=== PATIENT | female | born 1960 | race Caucasian/White ===

== ENCOUNTER 2017-02-16 09:19 | Emergency (ER) | payer BC ==
[2017-02-16] MEDS ORDERED: SODIUM CHLORIDE 0.9% 1,000 ML IV STA ×2 (09:51)
--- NOTE | 2017-02-16 10:07 | ED ---
Recheck HPI - General Chief Complaint: Recheck/Abnormal Lab/Rx Stated Complaint: SOB Time Seen by Provider: 02/16/17 09:29 Source: patient, EMS, RN notes reviewed, old records reviewed Mode of arrival: EMS Limitations: no limitations - History of Present Illness Initial Comments: This is a 56-year-old female presents to the emergency department today via EMS chief complaint of viral illness for the past week. She reports that she went to her primary care doctor, and he told one week ago and he did chest x-ray. They told her that she had a viral illness and to go home and rest. Patient reports that she's not getting any better with [id number] medications. She went to the primary care doctor again today, and they repeated a chest x- ray. They question if there is a developing pneumonia as well as some evidence of an enlarged heart and her chest x-ray. They sent her here for further evaluation. She reports that she has a nonproductive cough. She complains of shortness of breath. She reports that she has right sided lung pain. She denies any lower extremity swelling, denies any orthopnea. Patient states that she has had nausea but no vomiting. Denies any specific abdominal pain, or changes in bowel habits or urination. - Related Data Home Medications Medication Instructions Recorded Confirmed Loratadine [Claritin] 1 tab PO HS 07/26/13 02/16/17 Acetaminophen [Tylenol] 325 mg PO Q4H PRN 02/16/17 02/16/17 Ibuprofen [Motrin] 200 - 400 mg PO Q6HR PRN 02/16/17 02/16/17 guaiFENesin [Mucinex] 600 mg PO BID PRN 02/16/17 02/16/17 Previous Rx's Medication Instructions Recorded Albuterol Inhaler [Ventolin Hfa 1 - 2 puff INHALATION Q6HR PRN #1 02/16/17 Inhaler] inhaler Azithromycin 250 mg PO DAILY #6 tablet 02/16/17 Promethazine/Dextromethorphan 5 ml PO TID #120 ml 02/16/17 [Phenergan DM Syrup] methylPREDNISolone Dose Pack 4 mg PO DIRECTED #21 package 02/16/17 [Medrol Dose Pack] Allergies Allergy/AdvReac Type Severity Reaction Status Date / Time codeine Allergy Anaphylaxis Verified 02/16/17 09:31 Penicillins Allergy Unknown Verified 02/16/17 09:31 Childhood Sulfa (Sulfonamide Allergy Dyspnea Verified 02/16/17 09:31 Antibiotics) tetracycline Allergy Unknown Verified 02/16/17 09:31 Childhood Review of Systems ROS Statement: Those systems with pertinent positive or pertinent negative responses have been documented in the HPI. ROS Other: All systems not noted in ROS Statement are negative. Past Medical History Past Medical History: Asthma, CVA/TIA, Fibromyalgia Additional Past Medical History / Comment(s): FIBROMYALGIA,ARTHRITIS,SCOLISOSIS History of Any Multi-Drug Resistant Organisms: None Reported Past Surgical History: Hysterectomy, Orthopedic Surgery Additional Past Surgical History / Comment(s): cervicaL FUSION,D&C, LT BREAST BX -NEG Past Anesthesia/Blood Transfusion Reactions: No Reported Reaction Additional Past Anesthesia/Blood Transfusion Reaction / Comment(s): CLAUSTERPHOBIA Past Psychological History: No Psychological Hx Reported Smoking Status: Former smoker Past Alcohol Use History: Occasional, Rare Past Drug Use History: None Reported - Past Family History Father Family Medical History: Cancer Additional Family Medical History / Comment(s): PT DOES'NT KNOW WHAT TYPE Mother Family Medical History: Cancer Additional Family Medical History / Comment(s): STOMACH CANCER General Exam - General Exam Comments Initial Comments: This is a 56-year-old female. No distress. Limitations: no limitations General appearance: alert, in no apparent distress Head exam: Present: atraumatic, normocephalic, normal inspection Eye exam: Present: normal appearance, PERRL, EOMI. Absent: scleral icterus, conjunctival injection, periorbital swelling ENT exam: Present: normal exam, mucous membranes moist Neck exam: Present: normal inspection. Absent: tenderness, meningismus, lymphadenopathy Respiratory exam: Present: normal lung sounds bilaterally. Absent: respiratory distress, wheezes, rales, rhonchi, stridor Cardiovascular Exam: Present: regular rate, normal rhythm, normal heart sounds. Absent: systolic murmur, diastolic murmur, rubs, gallop, clicks GI/Abdominal exam: Present: soft, normal bowel sounds. Absent: distended, tenderness, guarding, rebound, rigid Extremities exam: Present: normal inspection, full ROM, normal capillary refill. Absent: tenderness, pedal edema, joint swelling, calf tenderness Back exam: Present: normal inspection Neurological exam: Present: alert, oriented X3, CN II-XII intact Psychiatric exam: Present: normal affect, normal mood Skin exam: Present: warm, dry, intact, normal color. Absent: rash Course Vital Signs 02/16/17 02/16/17 02/16/17 09:20 12:29 12:56 Temperature 97.3 F L 97.9 F Pulse Rate 72 57 L 56 L Respiratory 18 18 18 Rate Blood Pressure 119/62 114/54 98/54 O2 Sat by Pulse 100 98 98 Oximetry Medical Decision Making - Medical Decision Making Is a 56-year-old female presents for extremity complaint of feeling ill, sinus congestion, shortness of breath, right-sided lung pain. Patient's labwork was all reviewed to be normal. negative d-dimer. Negative troponin, negative BNP. PCP sent in because initial question to rule out cardiomegaly between recent CXR and question pneumonia, No significant shortness of breath at this time. She does have right sided pleurisy. There is some up with the patient on Azithromycin for sinusitis as well as steroids and albuterol. Discussed that she should take a temperature medications. Discussed falling up with her PCP. Patient understands treatment plan will comply. Return parameters were discussed. Written off of work - Lab Data Result diagrams: 02/16/17 10:15 02/16/17 10:15 Lab Results 02/16/17 02/16/17 02/16/17 Range/Units 10:15 10:15 10:15 WBC 3.3 L (3.8-10.6) k/uL RBC 4.08 (3.80-5.40) m/uL Hgb 12.7 (11.4-16.0) gm/dL Hct 38.7 (34.0-46.0) % MCV 94.9 (80.0-100.0) fL MCH 31.1 (25.0-35.0) pg MCHC 32.8 (31.0-37.0) g/dL RDW 12.4 (11.5-15.5) % Plt Count 301 (150-450) k/uL Neutrophils % 55 % Lymphocytes % 36 % Monocytes % 5 % Eosinophils % 1 % Basophils % 0 % Neutrophils # 1.8 (1.3-7.7) k/uL Lymphocytes # 1.2 (1.0-4.8) k/uL Monocytes # 0.2 (0-1.0) k/uL Eosinophils # 0.0 (0-0.7) k/uL Basophils # 0.0 (0-0.2) k/uL PT (9.0-12.0) sec INR (<1.2) APTT (22.0-30.0) sec D-Dimer (<0.60) mg/L FEU Sodium 142 (137-145) mmol/L Potassium 3.8 (3.5-5.1) mmol/L Chloride 107 (98-107) mmol/L Carbon Dioxide 26 (22-30) mmol/L Anion Gap 9 mmol/L BUN 23 H (7-17) mg/dL Creatinine 0.64 (0.52-1.04) mg/dL Est GFR (MDRD) Af Amer >60 (>60 ml/min/1.73 sqM) Est GFR (MDRD) Non-Af >60 (>60 ml/min/1.73 sqM) Glucose 82 (74-99) mg/dL Plasma Lactic Acid Benito (0.7-2.0) mmol/L Calcium 9.8 (8.4-10.2) mg/dL Magnesium 2.0 (1.6-2.3) mg/dL Total Bilirubin 0.6 (0.2-1.3) mg/dL AST 33 (14-36) U/L ALT 51 (9-52) U/L Alkaline Phosphatase 57 (38-126) U/L Total Creatine Kinase 141 H (30-135) U/L CK-MB (CK-2) 0.8 (0.0-2.4) ng/mL CK-MB (CK-2) Rel Index 0.6 Troponin I <0.012 (0.000-0.034) ng/mL NT-Pro-B Natriuret Pep pg/mL Total Protein 6.5 (6.3-8.2) g/dL Albumin 3.8 (3.5-5.0) g/dL Urine Color Urine Appearance (Clear) Urine pH (5.0-8.0) Ur Specific [place] (1.001-1.035) Urine Protein (Negative) Urine Glucose (UA) (Negative) Urine Ketones (Negative) Urine Blood (Negative) Urine Nitrite (Negative) Urine Bilirubin (Negative) Urine Urobilinogen (<2.0) mg/dL Ur Leukocyte Esterase (Negative) 02/16/17 02/16/17 02/16/17 Range/Units 10:15 10:15 10:15 WBC (3.8-10.6) k/uL RBC (3.80-5.40) m/uL Hgb (11.4-16.0) gm/dL Hct (34.0-46.0) % MCV (80.0-100.0) fL MCH (25.0-35.0) pg MCHC (31.0-37.0) g/dL RDW (11.5-15.5) % Plt Count (150-450) k/uL Neutrophils % % Lymphocytes % % Monocytes % % Eosinophils % % Basophils % % Neutrophils # (1.3-7.7) k/uL Lymphocytes # (1.0-4.8) k/uL Monocytes # (0-1.0) k/uL Eosinophils # (0-0.7) k/uL Basophils # (0-0.2) k/uL PT 9.8 (9.0-12.0) sec INR 1.0 (<1.2) APTT 24.1 (22.0-30.0) sec D-Dimer 0.34 (<0.60) mg/L FEU Sodium (137-145) mmol/L Potassium (3.5-5.1) mmol/L Chloride (98-107) mmol/L Carbon Dioxide (22-30) mmol/L Anion Gap mmol/L BUN (7-17) mg/dL Creatinine (0.52-1.04) mg/dL Est GFR (MDRD) Af Amer (>60 ml/min/1.73 sqM) Est GFR (MDRD) Non-Af (>60 ml/min/1.73 sqM) Glucose (74-99) mg/dL Plasma Lactic Acid [place] (0.7-2.0) mmol/L Calcium (8.4-10.2) mg/dL Magnesium (1.6-2.3) mg/dL Total Bilirubin (0.2-1.3) mg/dL AST (14-36) U/L ALT (9-52) U/L Alkaline Phosphatase (38-126) U/L Total Creatine Kinase (30-135) U/L CK-MB (CK-2) (0.0-2.4) ng/mL CK-MB (CK-2) Rel Index Troponin I (0.000-0.034) ng/mL NT-Pro-B Natriuret Pep 37 pg/mL Total Protein (6.3-8.2) g/dL Albumin (3.5-5.0) g/dL Urine Color Yellow Urine Appearance Clear (Clear) Urine pH 5.5 (5.0-8.0) Ur Specific [place] 1.011 (1.001-1.035) Urine Protein Negative (Negative) Urine Glucose (UA) Negative (Negative) Urine Ketones Negative (Negative) Urine Blood Negative (Negative) Urine Nitrite Negative (Negative) Urine Bilirubin Negative (Negative) Urine Urobilinogen <2.0 (<2.0) mg/dL Ur Leukocyte Esterase Negative (Negative) 02/16/17 Range/Units 10:15 WBC (3.8-10.6) k/uL RBC (3.80-5.40) m/uL Hgb (11.4-16.0) gm/dL Hct (34.0-46.0) % MCV (80.0-100.0) fL MCH (25.0-35.0) pg MCHC (31.0-37.0) g/dL RDW (11.5-15.5) % Plt Count (150-450) k/uL Neutrophils % % Lymphocytes % % Monocytes % % Eosinophils % % Basophils % % Neutrophils # (1.3-7.7) k/uL Lymphocytes # (1.0-4.8) k/uL Monocytes # (0-1.0) k/uL Eosinophils # (0-0.7) k/uL Basophils # (0-0.2) k/uL PT (9.0-12.0) sec INR (<1.2) APTT (22.0-30.0) sec D-Dimer (<0.60) mg/L FEU Sodium (137-145) mmol/L Potassium (3.5-5.1) mmol/L Chloride (98-107) mmol/L Carbon Dioxide (22-30) mmol/L Anion Gap mmol/L BUN (7-17) mg/dL Creatinine (0.52-1.04) mg/dL Est GFR (MDRD) Af Amer (>60 ml/min/1.73 sqM) Est GFR (MDRD) Non-Af (>60 ml/min/1.73 sqM) Glucose (74-99) mg/dL Plasma Lactic Acid Benito 0.8 (0.7-2.0) mmol/L Calcium (8.4-10.2) mg/dL Magnesium (1.6-2.3) mg/dL Total Bilirubin (0.2-1.3) mg/dL AST (14-36) U/L ALT (9-52) U/L Alkaline Phosphatase (38-126) U/L Total Creatine Kinase (30-135) U/L CK-MB (CK-2) (0.0-2.4) ng/mL CK-MB (CK-2) Rel Index Troponin I (0.000-0.034) ng/mL NT-Pro-B Natriuret Pep pg/mL Total Protein (6.3-8.2) g/dL Albumin (3.5-5.0) g/dL Urine Color Urine Appearance (Clear) Urine pH (5.0-8.0) Ur Specific [place] (1.001-1.035) Urine Protein (Negative) Urine Glucose (UA) (Negative) Urine Ketones (Negative) Urine Blood (Negative) Urine Nitrite (Negative) Urine Bilirubin (Negative) Urine Urobilinogen (<2.0) mg/dL Ur Leukocyte Esterase (Negative) Interpretation: no acute changes, normal EKG - Radiology Data Radiology results: report reviewed EKG shows normal sinus rhythm.. Ventricular rate of 60 bpm. IA interval 144 ms. QRS duration 86 ms. QT QTc is 460 ms. Disposition Clinical Impression: Sinusitis, Pleurisy Disposition: HOME SELF-CARE Condition: Good Instructions: Pleurisy (ED), Sinusitis (ED) Additional Instructions: The medications as prescribed. Follow-up with PCP. Return to the emergency department if any alarming signs or symptoms occur. Prescriptions: Albuterol Inhaler [Ventolin Hfa Inhaler] 1 - 2 puff INHALATION Q6HR PRN #1 inhaler PRN Reason: Shortness Of Breath Azithromycin 250 mg PO DAILY #6 tablet methylPREDNISolone Dose Pack [Medrol Dose Pack] 4 mg PO DIRECTED #21 package Promethazine/Dextromethorphan [Phenergan DM Syrup] 5 ml PO TID #120 ml Referrals: Violet Arrington MD [Primary Care Provider] - 1-2 days Time of Disposition: 12:41
[2017-02-16 10:31] LABS: Appearance,Urine Clear (Clear); Basophils % (A) 0 %; Bilirubin,Urine Negative (Negative); Blood,Urine Negative (Negative); Color,Urine Yellow; Eosinophils % (A) 1 %; Glucose,Urine (UA) Negative (Negative); HCT 38.7 % (34.0-46.0); HGB 12.7 gm/dL (11.4-16.0); Ketones,Urine Negative (Negative); Leukocyte Esterase,Urine Negative (Negative); Lymphocytes # (A) 1.2 k/uL (1.0-4.8); Lymphocytes % (A) 36 %; MCH 31.1 pg (25.0-35.0); MCHC 32.8 g/dL (31.0-37.0); MCV 94.9 fL (80.0-100.0); Mean Platelet Volume 6.4; Monocytes # (A) 0.2 k/uL (0-1.0); Monocytes % (A) 5 %; Neutrophils # (A) 1.8 k/uL (1.3-7.7); Neutrophils % (A) 55 %; Nitrite,Urine Negative (Negative); PH, Urine 5.5 (5.0-8.0); Platelet Count 301 k/uL (150-450); Protein,Urine Negative (Negative); RBC 4.08 m/uL (3.80-5.40); RDW 12.4 % (11.5-15.5); Specific Gravity,Urine 1.011 (1.001-1.035); Urobilinogen,Urine <2.0 mg/dL (<2.0); WBC 3.3 k/uL (3.8-10.6)
[2017-02-16 10:50] LABS: D-Dimer 0.34 mg/L FEU (<0.60)
--- NOTE | 2017-02-16 10:51 | XR ---
EXAMINATION TYPE: XR chest 2V DATE OF EXAM: 02/16/2017 COMPARISON: 05/22/2014 INDICATION: Short of breath right-sided lung pain TECHNIQUE: Frontal and lateral views of the chest are obtained. FINDINGS: The heart size is normal. The pulmonary vasculature is normal. The lungs are clear. Anterior cervical fusion plate and screws are evident. EKG leads overlie the ch est. IMPRESSION: 1. No acute pulmonary process.
[2017-02-16 10:53] LABS: ALT 51 U/L (9-52); AST 33 U/L (14-36); Albumin 3.8 g/dL (3.5-5.0); Alkaline Phosphatase 57 U/L (38-126); Anion Gap 9 mmol/L; Blood Urea Nitrogen 23 mg/dL (7-17); Calcium 9.8 mg/dL (8.4-10.2); Carbon Dioxide 26 mmol/L (22-30); Chloride 107 mmol/L (98-107); Glucose 82 mg/dL (74-99); Potassium 3.8 mmol/L (3.5-5.1); Sodium 142 mmol/L (137-145); Total Bilirubin 0.6 mg/dL (0.2-1.3); Total Protein 6.5 g/dL (6.3-8.2)
[2017-02-16 10:54] LABS: Creatine Kinase 141 U/L (30-135)
[2017-02-16 10:55] LABS: Prothrombin Time 9.8 sec (9.0-12.0)
[2017-02-16 10:56] LABS: Partial Thromboplastin Time 24.1 sec (22.0-30.0)
[2017-02-16 11:07] LABS: Creatine Kinase MB 0.8 ng/mL (0.0-2.4); Troponin I <0.012 ng/mL (0.000-0.034)
[2017-02-16] MEDS ORDERED: IBUPROFEN 600 MG TAB PO STA (12:35)
[2017-02-16] MEDS ORDERED: ACETAMINOPHEN TAB 500 MG TAB PO STA (12:35)
[2017-02-16] MEDS ORDERED: AZITHROMYCIN 500 MG TAB PO STA (12:44)
[2017-02-16] MEDS ORDERED: methylPREDNISolone SOD SUCCI 125 MG/2 ML VIAL IV STA (12:44)
[2017-02-16 16:32] VITALS: BP 98/54; PULSE 56; RESP 18; TEMP 97.9
== END 2017-02-16 13:02 | disposition home or self-care (01) ==
LOC: EC 09:19
DX: J32.9 Chronic sinusitis, unspecified (principal); R09.1 Pleurisy; R06.02 Shortness of breath; Z87.891 Personal history of nicotine dependence; Z79.899 Other long term (current) drug therapy; Z88.0 Allergy status to penicillin; Z88.1 Allergy status to other antibiotic agents; Z88.2 Allergy status to sulfonamides; Z88.5 Allergy status to narcotic agent
CPT/HCPCS: 36415; 93005; 85379; 83880; 80053; 82550; 82553; 83605; 83735; 84484; 85025; 85610; 85730; 81003; 87040; 71046; 99285; 96374; 96361 ×3; J2930

== ENCOUNTER 2017-04-19 19:46 | Emergency (ER) | payer BC ==
[2017-04-19] MEDS ORDERED: RX INFO: IV CONTRAST WAS GIVEN 1 EACH MISC MISCELLANE PRN (19:56)
[2017-04-19] MEDS ORDERED: SODIUM CHLORIDE 0.9% 1,000 ML IV STA ×2 (20:06)
[2017-04-19 20:39] LABS: Basophils % (A) 1 %; Eosinophils % (A) 1 %; HGB 12.8 gm/dL (11.4-16.0); Lymphocytes # (A) 1.7 k/uL (1.0-4.8); Lymphocytes % (A) 42 %; MCHC 33.6 g/dL (31.0-37.0); MCV 92.1 fL (80.0-100.0); Mean Platelet Volume 6.8; Monocytes # (A) 0.2 k/uL (0-1.0); Monocytes % (A) 5 %; Neutrophils % (A) 49 %; Platelet Count 228 k/uL (150-450); RBC 4.12 m/uL (3.80-5.40); RDW 12.7 % (11.5-15.5)
--- NOTE | 2017-04-19 20:39 | ED ---
General Adult HPI - General Chief complaint: Chest Pain Stated complaint: Back Pain Time Seen by Provider: 04/19/17 19:51 Source: patient, RN notes reviewed, old records reviewed Mode of arrival: ambulatory Limitations: no limitations - History of Present Illness Initial comments: This is a 56-year-old female to the ER for evaluation of chest pain chest pain back pain with diaphoresis. Patient has no history of similar complaints. Takes no medications. Patient states she may have had a stroke at some point in her life. 6 wasn't feeling well on her posterior work today. And was kind and episodic throughout her entire stay at work and then began with chest pain. He is chest pain got progressively worse and is still there. Patient's chest pain is sharp left-sided rating to her back - Related Data Home Medications Medication Instructions Recorded Confirmed Thrive 1 packet PO DAILY 04/19/17 04/19/17 Allergies Allergy/AdvReac Type Severity Reaction Status Date / Time codeine Allergy Anaphylaxis Verified 04/19/17 20:10 Penicillins Allergy Unknown Verified 04/19/17 20:10 Childhood Sulfa (Sulfonamide Allergy Dyspnea Verified 04/19/17 20:10 Antibiotics) tetracycline Allergy Unknown Verified 04/19/17 20:10 Childhood Review of Systems ROS Statement: Those systems with pertinent positive or pertinent negative responses have been documented in the HPI. ROS Other: All systems not noted in ROS Statement are negative. Past Medical History Past Medical History: Asthma, CVA/TIA, Fibromyalgia Additional Past Medical History / Comment(s): FIBROMYALGIA,ARTHRITIS,SCOLISOSIS History of Any Multi-Drug Resistant Organisms: None Reported Past Surgical History: Hysterectomy, Orthopedic Surgery Additional Past Surgical History / Comment(s): cervicaL FUSION,D&C, LT BREAST BX -NEG Past Anesthesia/Blood Transfusion Reactions: No Reported Reaction Additional Past Anesthesia/Blood Transfusion Reaction / Comment(s): CLAUSTERPHOBIA Past Psychological History: No Psychological Hx Reported Smoking Status: Never smoker Past Alcohol Use History: None Reported Past Drug Use History: None Reported - Past Family History Father Family Medical History: Cancer Additional Family Medical History / Comment(s): PT DOES'NT KNOW WHAT TYPE Mother Family Medical History: Cancer Additional Family Medical History / Comment(s): STOMACH CANCER General Exam Limitations: no limitations General appearance: alert, in no apparent distress Head exam: Present: atraumatic, normocephalic, normal inspection Eye exam: Present: normal appearance, PERRL, EOMI. Absent: scleral icterus, conjunctival injection, periorbital swelling ENT exam: Present: normal exam, mucous membranes moist Neck exam: Present: normal inspection. Absent: tenderness, meningismus, lymphadenopathy Respiratory exam: Present: normal lung sounds bilaterally. Absent: respiratory distress, wheezes, rales, rhonchi, stridor Cardiovascular Exam: Present: regular rate, normal rhythm, normal heart sounds. Absent: systolic murmur, diastolic murmur, rubs, gallop, clicks GI/Abdominal exam: Present: soft, normal bowel sounds. Absent: distended, tenderness, guarding, rebound, rigid Extremities exam: Present: normal inspection, full ROM, normal capillary refill. Absent: tenderness, pedal edema, joint swelling, calf tenderness Back exam: Present: normal inspection Neurological exam: Present: alert, oriented X3, CN II-XII intact Psychiatric exam: Present: normal affect, normal mood Skin exam: Present: warm, dry, intact, normal color. 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 ] Respiratory 18 20 17 Rate Blood Pressure 131/73 127/64 O2 Sat by Pulse 99 100 Oximetry EKG Findings - EKG Comments: EKG Findings:: EKG shows sinus rhythm rate of 82, GA 132, QRS 86, QTc 446 Medical Decision Making - Lab Data Result diagrams: 04/19/17 20:25 04/19/17 20:25 Lab Results 04/19/17 04/19/17 04/19/17 Range/Units 20:25 20:25 20:25 WBC 4.0 (3.8-10.6) k/uL RBC 4.12 (3.80-5.40) m/uL Hgb 12.8 (11.4-16.0) gm/dL Hct 38.0 (34.0-46.0) % MCV 92.1 (80.0-100.0) fL MCH 31.0 (25.0-35.0) pg MCHC 33.6 (31.0-37.0) g/dL RDW 12.7 (11.5-15.5) % Plt Count 228 (150-450) k/uL Neutrophils % 49 % Lymphocytes % 42 % Monocytes % 5 % Eosinophils % 1 % Basophils % 1 % Neutrophils # 2.0 (1.3-7.7) k/uL Lymphocytes # 1.7 (1.0-4.8) k/uL Monocytes # 0.2 (0-1.0) k/uL Eosinophils # 0.0 (0-0.7) k/uL Basophils # 0.0 (0-0.2) k/uL PT (9.0-12.0) sec INR (<1.2) APTT (22.0-30.0) sec Sodium 142 (137-145) mmol/L Potassium 3.7 (3.5-5.1) mmol/L Chloride 105 (98-107) mmol/L Carbon Dioxide 27 (22-30) mmol/L Anion Gap 10 mmol/L BUN 29 H (7-17) mg/dL Creatinine 0.80 (0.52-1.04) mg/dL Est GFR (CKD-EPI)AfAm >90 (>60 ml/min/1.73 sqM) Est GFR (CKD-EPI)NonAf 84 (>60 ml/min/1.73 sqM) Glucose 117 H (74-99) mg/dL Plasma Lactic Acid [place] (0.7-2.0) mmol/L Calcium 9.7 (8.4-10.2) mg/dL Phosphorus 4.7 H (2.5-4.5) mg/dL Magnesium 1.8 (1.6-2.3) mg/dL Total Bilirubin 0.3 (0.2-1.3) mg/dL AST 28 (14-36) U/L ALT 33 (9-52) U/L Alkaline Phosphatase 64 (38-126) U/L Total Creatine Kinase 208 H (30-135) U/L CK-MB (CK-2) 1.5 (0.0-2.4) ng/mL CK-MB (CK-2) Rel Index 0.7 Troponin I <0.012 (0.000-0.034) ng/mL Total Protein 6.6 (6.3-8.2) g/dL Albumin 3.9 (3.5-5.0) g/dL Urine Color Urine Appearance (Clear) Urine pH (5.0-8.0) Ur Specific [place] (1.001-1.035) Urine Protein (Negative) Urine Glucose (UA) (Negative) Urine Ketones (Negative) Urine Blood (Negative) Urine Nitrite (Negative) Urine Bilirubin (Negative) Urine Urobilinogen (<2.0) mg/dL Ur Leukocyte Esterase (Negative) Urine RBC (0-5) /hpf Ur Squamous Epith Cells (0-4) /hpf Urine Bacteria (None) /hpf 04/19/17 04/19/17 04/19/17 Range/Units 20:25 20:25 20:35 WBC (3.8-10.6) k/uL RBC (3.80-5.40) m/uL Hgb (11.4-16.0) gm/dL Hct (34.0-46.0) % MCV (80.0-100.0) fL MCH (25.0-35.0) pg MCHC (31.0-37.0) g/dL RDW (11.5-15.5) % Plt Count (150-450) k/uL Neutrophils % % Lymphocytes % % Monocytes % % Eosinophils % % Basophils % % Neutrophils # (1.3-7.7) k/uL Lymphocytes # (1.0-4.8) k/uL Monocytes # (0-1.0) k/uL Eosinophils # (0-0.7) k/uL Basophils # (0-0.2) k/uL PT 10.0 (9.0-12.0) sec INR 1.0 (<1.2) APTT 24.7 (22.0-30.0) sec Sodium (137-145) mmol/L Potassium (3.5-5.1) mmol/L Chloride (98-107) mmol/L Carbon Dioxide (22-30) mmol/L Anion Gap mmol/L BUN (7-17) mg/dL Creatinine (0.52-1.04) mg/dL Est GFR (CKD-EPI)AfAm (>60 ml/min/1.73 sqM) Est GFR (CKD-EPI)NonAf (>60 ml/min/1.73 sqM) Glucose (74-99) mg/dL Plasma Lactic Acid [place] 1.3 (0.7-2.0) mmol/L Calcium (8.4-10.2) mg/dL Phosphorus (2.5-4.5) mg/dL Magnesium (1.6-2.3) mg/dL Total Bilirubin (0.2-1.3) mg/dL AST (14-36) U/L ALT (9-52) U/L Alkaline Phosphatase (38-126) U/L Total Creatine Kinase (30-135) U/L CK-MB (CK-2) (0.0-2.4) ng/mL CK-MB (CK-2) Rel Index Troponin I (0.000-0.034) ng/mL Total Protein (6.3-8.2) g/dL Albumin (3.5-5.0) g/dL Urine Color Light Yellow Urine Appearance Clear (Clear) Urine pH 5.5 (5.0-8.0) Ur Specific [place] 1.017 (1.001-1.035) Urine Protein Negative (Negative) Urine Glucose (UA) Negative (Negative) Urine Ketones Negative (Negative) Urine Blood Negative (Negative) Urine Nitrite Negative (Negative) Urine Bilirubin Negative (Negative) Urine Urobilinogen <2.0 (<2.0) mg/dL Ur Leukocyte Esterase Trace H (Negative) Urine RBC 1 (0-5) /hpf Ur Squamous Epith Cells <1 (0-4) /hpf Urine Bacteria Rare H (None) /hpf Disposition Clinical Impression: Atypical chest pain, Chest pain Disposition: HOME SELF-CARE Condition: Good Instructions: Chest Pain (ED) Referrals: Violet Arrington MD [Primary Care Provider] - 1-2 days
[2017-04-19 20:47] LABS: Partial Thromboplastin Time 24.7 sec (22.0-30.0)
[2017-04-19 20:49] LABS: Appearance,Urine Clear (Clear); Bacteria,Urine Rare /hpf; Bilirubin,Urine Negative (Negative); Blood,Urine Negative (Negative); Color,Urine Light Yellow; Glucose,Urine (UA) Negative (Negative); Ketones,Urine Negative (Negative); Leukocyte Esterase,Urine Trace (Negative); PH, Urine 5.5 (5.0-8.0); Protein,Urine Negative (Negative); RBC,Urine 1 /hpf (0-5); Specific Gravity,Urine 1.017 (1.001-1.035); Squamous Epithelial Cell,Urine <1 /hpf (0-4); Urobilinogen,Urine <2.0 mg/dL (<2.0)
[2017-04-19 20:56] LABS: ALT 33 U/L (9-52); AST 28 U/L (14-36); Albumin 3.9 g/dL (3.5-5.0); Alkaline Phosphatase 64 U/L (38-126); Anion Gap 10 mmol/L; Blood Urea Nitrogen 29 mg/dL (7-17); Calcium 9.7 mg/dL (8.4-10.2); Carbon Dioxide 27 mmol/L (22-30); Chloride 105 mmol/L (98-107); Glucose 117 mg/dL (74-99); Phosphorus 4.7 mg/dL (2.5-4.5); Potassium 3.7 mmol/L (3.5-5.1); Sodium 142 mmol/L (137-145); Total Bilirubin 0.3 mg/dL (0.2-1.3); Total Protein 6.6 g/dL (6.3-8.2)
[2017-04-19 21:01] LABS: Creatine Kinase 208 U/L (30-135)
[2017-04-19 21:14] LABS: Creatine Kinase MB 1.5 ng/mL (0.0-2.4); Troponin I <0.012 ng/mL (0.000-0.034)
--- NOTE | 2017-04-19 21:31 | CT ---
EXAMINATION TYPE: CT angio chest DATE OF EXAM: 04/19/2017 COMPARISON: Chest x-ray February 16, 2017. HISTORY: Shortness of breath rule out pulmonary embolism CT DLP: 61.6 mGycm. Automated Exposure Control for Dose Reduction was Utilized. CONTRAST: CTA scan of the thorax is performed with IV Contrast, patient injected with 100 mL of Omnipaque 350, pulmonary embolism protocol. MIP Images are created on CT scanner and reviewed. FINDINGS: LUNGS: Some respiratory motion artifact degradation near the diaphragms is present. The lungs are mona ssly clear, there is no concerning parenchymal mass or nodule identified. There is no pleural effus ion or pneumothorax seen. The tracheobronchial tree is patent. MEDIASTINUM: There is suboptimal bolus with near equal contrast summary left heart systems but there is no convincing CT evidence for acute pulmonary embolism. There are no greater than 1 cm hilar or m ediastinal lymph nodes. No cardiomegaly is seen. Tiny pericardial effusion is noted. OTHER: Suspect right breast surgical clip on axial image 92. Cholecystectomy clips are present. There are low density lesions scattered throughout the liver felt to reflect simple cysts there is mild mu ltilevel spurring in the midthoracic spine. There is partial visualization of surgical changes in the lower cervical spine. IMPRESSION: Suboptimal study without CT evidence for pulmonary embolism. No suspicious acute pulmonar y process is identified.
[2017-04-19] MEDS ORDERED: KETOROLAC 30 MG/ML 1 ML VIAL IVP STA (21:41)
[2017-04-19 22:11] VITALS: BP 109/61; PULSE 70; RESP 18; TEMP 98.4
== END 2017-04-19 22:21 | disposition home or self-care (01) ==
LOC: EC 19:46
DX: R07.89 Other chest pain (principal); M54.9 Dorsalgia, unspecified; R61 Generalized hyperhidrosis; Z79.899 Other long term (current) drug therapy; Z88.0 Allergy status to penicillin; Z88.1 Allergy status to other antibiotic agents; Z88.2 Allergy status to sulfonamides; Z88.5 Allergy status to narcotic agent
CPT/HCPCS: 36415; 93005; 80053; 82550; 82553; 83605; 83735; 84100; 84484; 85025; 85610; 85730; 81001; 71275; 99285; 96374; 96361 ×2; Q9967; J1885

== ENCOUNTER → 2017-09-27 | Outpatient (CLI) | payer OTHER ==
--- NOTE | 2017-09-27 14:26 | XR ---
EXAMINATION TYPE: XR lumbar spine 2 or 3V DATE OF EXAM: 09/27/2017 COMPARISON: None HISTORY: Low back pain following lifting TECHNIQUE: Three-view lumbar spine FINDINGS: There 5 lumbar-type vertebral bodies. Pedicles are intact. There is a grade 2 spondylolisth esis of L5 anterior on S1. Loss of disc height is present L5-S1 and to a lesser degree L4-5. Remainin g disc heights are preserved. Vertebral body heights are preserved. IMPRESSION: 1. Grade 2 spondylolisthesis of L5 anterior on S1. 2. Degenerative disc changes L4-5 L5-S1.
== END | disposition home or self-care (01) ==
LOC: RADXRMAIN 13:57
PROVIDERS: ATTEND Emergency Medicine
DX: M43.17 Spondylolisthesis, lumbosacral region (principal); M51.36 Other intervertebral disc degeneration, lumbar region; M51.37 Other intervertebral disc degeneration, lumbosacral region
CPT/HCPCS: 72100

== ENCOUNTER → 2017-10-24 | Outpatient (CLI) | payer OTHER ==
--- NOTE | 2017-10-24 08:55 | XR ---
EXAMINATION TYPE: XR thoracic spine complete DATE OF EXAM: 10/24/2017 CLINICAL HISTORY: Low back pain from crushing injury. TECHNIQUE: Frontal, lateral, and swimmer's view of thoracic spine are obtained. COMPARISON: None. FINDINGS: Thoracic spine show dextroconvex scoliotic curvature without evidence of acute fracture or dislocation. Vertebral body heights and disc space heights are preserved. Mild to moderate multileve l anterior and lateral spurring is present. Visualized ribs are unremarkable. There is partial visu alization anterior fusion plate in the lower cervical spine. Cholecystectomy clips are noted. IMPRESSION: No acute fracture or dislocation is seen in the thoracic spine.
== END | disposition home or self-care (01) ==
LOC: RADXRMAIN 08:20
PROVIDERS: ATTEND Emergency Medicine
DX: M54.6 Pain in thoracic spine (principal)
CPT/HCPCS: 72072

== ENCOUNTER → 2017-10-28 | Outpatient (CLI) | payer OTHER ==
--- NOTE | 2017-10-29 13:22 | MR ---
EXAMINATION TYPE: MR migueline/naman wo con DATE OF EXAM: 10/28/2017 COMPARISON: NONE HISTORY: Strain/Pain of mid and low back TECHNIQUE: T1 and T2 axial and sagittal images of the lumbar spine are submitted. FINDINGS: There is no abnormal signal seen within the visualized spinal cord or paraspinal soft tissu es. Simple appearing hepatic cyst noted. Slight scoliotic curvature noted. Incidental note made of Ta rlov cyst involving the sacral levels. At L1-2 there is no disc herniation or canal stenosis. No foraminal encroachment. Mild hypertrophy of the facets. At L2-3 there is facet arthropathy. Very mild left lateral disc bulging but no canal stenosis or fora max encroachment. No discrete herniation At L3-4 there is atrophy of the facet joints. There is no disc herniation, canal stenosis, or foramin al encroachment. At L4-5 there is disc desiccation and degenerative disc disease with annular tear and broad-based alberto tral disc bulge. No canal stenosis or foraminal encroachment. At L5-S1 there is is a grade 1\2 anterolisthesis. There is moderate to severe bilateral foraminal enc roachment. Due to imaging assessment for spondylolysis limited. No canal stenosis or discrete herniat ion. IMPRESSION: 1. At L5-S1 there is is a grade 1\2 anterolisthesis. There is moderate to severe bilateral foraminal encroachment. No canal stenosis or discrete herniation. 2. At L4-5 there is disc desiccation with annular tear and broad-based central disc bulge. No canal s tenosis or foraminal encroachment. 3. Left lateral disc bulging L2-L3 but no foraminal encroachment or nerve root impingement. EXAMINATION TYPE: MR ventura/naman wo con DATE OF EXAM: 10/28/2017 COMPARISON: X-ray dated 10/24 17 HISTORY: Strain/Pain of mid and low back Standard multiplanar, multisequence MRI departmental protocol Multiplanar, multisequence images of the thoracic spine were acquired. FINDINGS: Alignment is anatomic. Vertebral body height and disc interspace are preserved. Spurring is noted at multiple levels throughout the vertebral column anteriorly. Artifact upper margin of the sagittal images suggest previous cervical spine surgery. There are no compression deformities. No abnormal signal the visualized spinal cord. There is no evidence of disc herniation, canal stenosis, or foraminal encroachment at any of the visu alized levels. IMPRESSION:
== END | disposition home or self-care (01) ==
LOC: RADMRIMAIN 08:50
PROVIDERS: ATTEND Emergency Medicine
DX: M51.26 Other intervertebral disc displacement, lumbar region (principal); M43.17 Spondylolisthesis, lumbosacral region
CPT/HCPCS: 72146; 72148

== ENCOUNTER 2018-03-23 00:10 | Observation (INO) | payer BC, OTHER ==
[2018-03-23 00:40] LABS: Basophils % (A) 0 %; Eosinophils # (A) 0.1 k/uL (0-0.7); Eosinophils % (A) 2 %; HCT 40.6 % (34.0-46.0); HGB 13.2 gm/dL (11.4-16.0); Lymphocytes # (A) 1.7 k/uL (1.0-4.8); Lymphocytes % (A) 46 %; MCH 31.3 pg (25.0-35.0); MCHC 32.6 g/dL (31.0-37.0); MCV 96.1 fL (80.0-100.0); Mean Platelet Volume 6.6; Monocytes # (A) 0.2 k/uL (0-1.0); Monocytes % (A) 5 %; Neutrophils # (A) 1.6 k/uL (1.3-7.7); Neutrophils % (A) 43 %; Platelet Count 212 k/uL (150-450); RBC 4.22 m/uL (3.80-5.40); RDW 13.2 % (11.5-15.5); WBC 3.6 k/uL (3.8-10.6)
[2018-03-23 00:49] LABS: ALT 30 U/L (9-52); AST 25 U/L (14-36); Albumin 3.9 g/dL (3.5-5.0); Alkaline Phosphatase 82 U/L (38-126); Amylase 54 U/L (30-110); Anion Gap 4 mmol/L; Blood Urea Nitrogen 26 mg/dL (7-17); Calcium 9.4 mg/dL (8.4-10.2); Carbon Dioxide 27 mmol/L (22-30); Chloride 110 mmol/L (98-107); Glucose 95 mg/dL (74-99); Lipase 62 U/L (23-300); Magnesium 1.8 mg/dL (1.6-2.3); Potassium 3.9 mmol/L (3.5-5.1); Sodium 141 mmol/L (137-145); Total Bilirubin 0.4 mg/dL (0.2-1.3); Total Protein 6.8 g/dL (6.3-8.2)
[2018-03-23 00:59] LABS: D-Dimer 0.29 mg/L FEU (<0.60); INR 0.9 (<1.2); Partial Thromboplastin Time 24.7 sec (22.0-30.0); Prothrombin Time 9.6 sec (9.0-12.0)
[2018-03-23] MEDS ORDERED: MORPHINE SULFATE 4 MG/ML SYRINGE IVP STA (01:03)
[2018-03-23] MEDS ORDERED: ONDANSETRON 4 MG/2 ML VIAL IVP STA (01:03)
--- NOTE | 2018-03-23 01:05 | XR ---
History: ITS.REASON XR Reason: Chest Pain Exam: XR CXR 2 VIEWS Comparison: 02/16/2017 FINDINGS: The lungs are clear. The cardiac and mediastinal contours are within limits. Again note of cervical disc fusion. IMPRESSION: No evidence of acute disease.
[2018-03-23 01:11] LABS: Creatine Kinase 183 U/L (30-135)
[2018-03-23 01:24] LABS: Creatine Kinase MB 1.7 ng/mL (0.0-2.4); Troponin I <0.012 ng/mL (0.000-0.034)
--- NOTE | 2018-03-23 02:20 | ED ---
Chest Pain HPI - General Chief Complaint: Chest Pain Stated Complaint: Chest Pain/ Headache/ Arm Pain Time Seen by Provider: 03/23/18 00:20 Source: patient Mode of arrival: wheelchair Limitations: no limitations - History of Present Illness Initial Comments: Kathia is a 57-year-old female who presents to the emergency department today for evaluation of chest pain. Patient reports that she's had mild chest pain throughout the day today, she thought it would go away. She reports that her pain improved this evening and she was able to go to bed however her pain then worsened and she decided she needed to come to the hospital. She intended on driving herself however she called her at work and he decided to come home and bring her to the hospital. She reports she had similar pain to this approximately one year ago, she did undergo a stress test and echo with no acute findings. He is never undergone any GI evaluation for cause of pain. MD Complaint: chest pain -: hour(s) Onset: during rest Pain Location: substernal, left chest Pain Radiation: back, neck, jaw/teeth Severity scale (1-10): 7 Quality: tightness, heaviness Consistency: intermittent Improves With: nothing Worsens With: nothing Anginal Symptoms: nausea, dyspnea Treatments Prior to Arrival: none - Related Data On Oral Contraceptives: No Home Medications Medication Instructions Recorded Confirmed No Known Home Medications 03/23/18 03/23/18 Allergies Allergy/AdvReac Type Severity Reaction Status Date / Time codeine Allergy Anaphylaxis Verified 03/23/18 05:07 Penicillins Allergy Unknown Verified 03/23/18 05:07 Childhood Sulfa (Sulfonamide Allergy Dyspnea Verified 03/23/18 05:07 Antibiotics) tetracycline Allergy Unknown Verified 03/23/18 05:07 Childhood Review of Systems ROS Statement: Those systems with pertinent positive or pertinent negative responses have been documented in the HPI. ROS Other: All systems not noted in ROS Statement are negative. EKG Findings - EKG Comments: EKG Findings:: EKG obtained at 12:19 AM, rate is 70 rhythm is sinus there is normal axis, there are normal intervals, RI 144, QRS 88, QTC 449. There are no acute ST elevations or depressions there is no evidence of acute ischemia or infarction. Repeat EKG was obtained due to worsening chest pain. EKG at 1:45 AM, rate is 56, rhythm is sinus bradycardia there is a normal axis, normal intervals, RI 138, QRS 92, QTc 455. There are no acute ST elevations or depressions there is no evidence of acute ischemia or infarction Past Medical History Past Medical History: Asthma, CVA/TIA, Fibromyalgia Additional Past Medical History / Comment(s): FIBROMYALGIA,ARTHRITIS,SCOLISOSIS History of Any Multi-Drug Resistant Organisms: None Reported Past Surgical History: Hysterectomy, Orthopedic Surgery Additional Past Surgical History / Comment(s): cervicaL FUSION,D&C, LT BREAST BX -NEG Past Anesthesia/Blood Transfusion Reactions: No Reported Reaction Additional Past Anesthesia/Blood Transfusion Reaction / Comment(s): CLAUSTERPHOBIA Past Psychological History: No Psychological Hx Reported Smoking Status: Never smoker Past Alcohol Use History: None Reported Past Drug Use History: None Reported - Past Family History Father Family Medical History: Cancer Additional Family Medical History / Comment(s): PT DOES'NT KNOW WHAT TYPE Mother Family Medical History: Cancer Additional Family Medical History / Comment(s): STOMACH CANCER General Exam - General Exam Comments Initial Comments: Physical Exam GENERAL: Patient is well-developed and well-nourished. Patient is nontoxic and well- hydrated and is in no distress. HENT: Normocephalic, Atraumatic. EYES: PERRL, EOMI PULMONARY: Unlabored respirations. No audible rales rhonchi or wheezing was noted. CARDIOVASCULAR: There is a regular rate and rhythm without any murmurs gallops or rubs. Warm and well perfused extremities No lower extremity edema ABDOMEN: Soft and nontender with normal bowel sounds. SKIN: Skin is clear with no lesions or rashes and otherwise unremarkable. : Deferred NEUROLOGIC: Patient is alert and oriented x3. Moving all extremities spontaneously MUSCULOSKELETAL: Normal extremities with adequate strength and full range of motion. No lower extremity swelling or edema. No calf tenderness. PSYCHIATRIC: Normal psychiatric evaluation. Limitations: no limitations Limitations: no limitations Course Vital Signs 03/23/18 03/23/18 03/23/18 00:12 00:18 01:00 Temperature 98.2 F Pulse Rate 65 70 Respiratory 18 17 Rate Blood Pressure 130/78 123/74 O2 Sat by Pulse 99 99 100 Oximetry 03/23/18 03/23/18 03/23/18 01:10 01:40 01:45 Temperature Pulse Rate 63 51 L Respiratory 16 17 Rate Blood Pressure 105/80 113/71 133/77 O2 Sat by Pulse 100 100 Oximetry 03/23/18 03/23/18 03/23/18 01:50 02:10 02:30 Temperature Pulse Rate 52 L 49 L 68 Respiratory 17 12 16 Rate Blood Pressure 133/77 138/74 138/74 O2 Sat by Pulse 100 99 99 Oximetry 03/23/18 03/23/18 03/23/18 02:40 03:10 04:00 Temperature Pulse Rate 61 56 L Respiratory 16 14 13 Rate Blood Pressure 136/69 110/65 105/67 O2 Sat by Pulse 100 98 97 Oximetry 03/23/18 03/23/18 04:10 04:40 Temperature Pulse Rate 51 L Respiratory 17 16 Rate Blood Pressure 92/61 93/59 O2 Sat by Pulse 95 Oximetry Chest Pain [facility] Patient was seen and evaluated history was obtained from the patient Cardiac workup was ordered EKG non-ischemic Nitro held due to relative hypotension which is normal for the patient Patient reported improvement in pain with morphine however pain returned and she felt it was worse repeat EKG was obtained which again was nonischemic Labs resulted with negative troponin Patient continuing to complain of epigastric and retrosternal pain GI cocktail was given with minimal improvement Given patient's persistent pain decision was made to start heparin and treat with nitro. Patient reported significant improvement after nitro. At this time have a high suspicion for possibility of cardiac etiology of the patient's pain and we'll plan to admit for ACS evaluation. Disposition Clinical Impression: Chest pain Disposition: ADMITTED IP TO THIS HOSP Is patient prescribed a controlled substance at d/c from ED?: No
[2018-03-23] MEDS ORDERED: MAG HYDROX/AL HYDROX/SIMETH 30 ML, HYOSCYAMINE ELIXIR 10 ML, CIMETIDINE HCL 300 MG, LID... PO STA ×4 (02:31)
[2018-03-23 02:42] LABS: Amylase 59 U/L (30-110); Lipase 61 U/L (23-300)
[2018-03-23] MEDS ORDERED: NITROGLYCERIN SL TABS 0.4 MG TAB SUBLINGUAL STA (03:08)
[2018-03-23] MEDS ORDERED: HEPARIN SODIUM,PORCINE 5,000 UNIT/ML 1 ML VIAL IV PRN (03:08)
[2018-03-23] MEDS ORDERED: HEPARIN SODIUM,PORCINE 5,000 UNIT/ML 1 ML VIAL IV ONE (03:08)
[2018-03-23] MEDS ORDERED: HEPARIN SOD,PORK IN 0.45% NACL 25,000 UNIT in 0.45% NACL 1 250ML.BAG IV SCH (03:15)
[2018-03-23 05:14] VITALS: BMI 23.6
[2018-03-23] MEDS ORDERED: KETOROLAC 30 MG/ML 1 ML VIAL IVP STA (05:42)
[2018-03-23] MEDS ORDERED: ONDANSETRON 4 MG/2 ML VIAL IVP PRN (05:43)
[2018-03-23] MEDS ORDERED: NITROGLYCERIN OINT 1 INCH/GM PACKET TOPICAL SCH (06:00)
[2018-03-23 07:45] LABS: Creatine Kinase 144 U/L (30-135)
[2018-03-23 07:57] LABS: Troponin I <0.012 ng/mL (0.000-0.034)
[2018-03-23 08:32] VITALS: RESP 16
--- NOTE | 2018-03-23 09:49 | P.CRDCN ---
History of Present Illness History of present illness: This is a pleasant 57-year-old female past medical history significant for fibromyalgia and asthma in the past. She denies history of coronary artery disease, hypertension, dyslipidemia or diabetes mellitus. Her father suffered his first myocardial infarction in his late 50s. 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 We have been asked to see her in consultation for symptoms of chest discomfort. She states last night while she was sitting down watching television she started feeling a heavy pressure sensation in the midsternal region. Initially the pain subsided and she fell asleep, however it returned with increasing intensity around 2300 so she came in for further evaluation. She had another episode while in the ED and was given GI cocktail, zofran, toradol and achieved relief of pain. No nitro was given due to hypotension, which is baseline for the patient. She has been having these pains intermittently over the past month or so. 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 She denies feeling pain in her chest while she is working or exerting herself. She has undergone a stress test last year that was unremarkable per the patient at [facility]. EKG reveals sinus mechanism with no acute ST or T-wave abnormalities. Repeat this morning is the same. Chest xray negative for an acute cardiopulmonary process. Laboratory data reviewed, WBC 3.6, hemoglobin 13.2, platelets 212, d-dimer 0.29 , sodium 141, potassium 3.9, creatinine 0.66, magnesium 1.8, cardiac enzymes negative 2, NT proBNP 40. She takes no daily cardiac medications. At the time of my exam: CONSTITUTIONAL: Denies fever. Denies chills. EYES: Denies blurred vision. Denies vision changes. Denies eye pain. EARS, NOSE, MOUTH & THROAT: Denies headache. Denies sore throat. Denies ear pain. CARDIOVASCULAR: Denies chest pain. Denies shortness of breath. Denies orthopnea. Denies PND. Denies palpitations. RESPIRATORY: Denies cough. GASTROINTESTINAL: Denies abdominal pain. Denies diarrhea. Denies constipation. Denies nausea. Denies vomiting. MUSCULOSKELETAL: Denies myalgias. INTEGUMENTARY: Denies pruitis. Denies rash. NEUROLOGIC: Denies numbness. Denies tingling. Denies weakness. PSYCHIATRIC: Denies anxiety. Denies depression. ENDOCRINE: Denies fatigue. Denies weight change. Denies polydipsia. Denies polyurina. GENITOURINARY: Denies burning, hematuria or urgency with micturation. HEMATOLOGIC: Denies history of anemia. Denies bleeding. Blood pressure 88/38 heart rate 56 afebrile maintaining oxygen saturation on room air GENERAL: This is a 57-year-old female in no apparent distress at the time of my examination. HEENT: Head is atraumatic, normocephalic. Pupils are equal, round. Sclerae anicteric. Conjunctivae are clear. Mucous membranes of the mouth are moist. Neck is supple. There is no jugular venous distention. No carotid bruit is heard. LUNGS: Clear to auscultation no wheezes, rales or rhonchi. No chest wall tenderness is noted on palpation or with deep breathing. HEART: Regular rate and rhythm without murmurs, rubs or gallops. S1 and S2 heard. ABDOMEN: Soft, nontender. Bowel sounds are heard. No organomegaly noted. EXTREMITIES: No evidence of peripheral edema and no calf tenderness noted. VASCULAR: Radial and dorsalis pedis pulses palpated, no evidence of clubbing. NEUROLOGIC: Patient is awake, alert and oriented x3. ASSESSMENT Chest pain, atypical. An acute coronary event has been ruled out no EKG evidence of ischemia and negative cardiac enzymes. Fibromyalgia Asthma PLAN An acute coronary event has been ruled out no EKG evidence of ischemia and negative cardiac enzymes. Obtain 2-D echocardiogram and Doppler study to assess cardiac structure and function. Perform stress echocardiogram to assess for stress-induced cardiac ischemia. If stress test is normal she is stable from a cardiac perspective. Follow-up upon discharge with her primary care physician. Thank you kindly for this consultation. Nurse Practitioner note has been reviewed, I agree with a documented findings and plan of care. Patient was seen and examined. Past Medical History Past Medical History: Asthma, CVA/TIA, Fibromyalgia Additional Past Medical History / Comment(s): FIBROMYALGIA,ARTHRITIS,SCOLISOSIS History of Any Multi-Drug Resistant Organisms: None Reported Past Surgical History: Hysterectomy, Orthopedic Surgery Additional Past Surgical History / Comment(s): cervicaL FUSION,D&C, LT BREAST BX -NEG Past Anesthesia/Blood Transfusion Reactions: No Reported Reaction Additional Past Anesthesia/Blood Transfusion Reaction / Comment(s): CLAUSTERPHOBIA Past Psychological History: No Psychological Hx Reported Smoking Status: Never smoker Past Alcohol Use History: None Reported Past Drug Use History: None Reported - Past Family History Father Family Medical History: Cancer Additional Family Medical History / Comment(s): PT DOES'NT KNOW WHAT TYPE Mother Family Medical History: Cancer Additional Family Medical History / Comment(s): STOMACH CANCER Brother(s) Additional Family Medical History / Comment(s): Patient has 2 brothers. One brother has history of CV disease and one has no major medical problems. Sister(s) Additional Family Medical History / Comment(s): Patient has 4 sisters. One from leukemia. One has hyperlipidemia. 2 have no major medical problems. Daughter(s) Additional Family Medical History / Comment(s): Patient has 3 daughters and 1 son with no major medical problems. Medications and Allergies Home Medications Medication Instructions Recorded Confirmed Type No Known Home Medications 03/23/18 03/23/18 History Allergies Allergy/AdvReac Type Severity Reaction Status Date / Time codeine Allergy Anaphylaxis Verified 03/23/18 07:47 Penicillins Allergy Unknown Verified 03/23/18 07:47 Childhood Sulfa (Sulfonamide Allergy Dyspnea Verified 03/23/18 07:47 Antibiotics) tetracycline Allergy Unknown Verified 03/23/18 07:47 Childhood Physical Exam Vitals: Vital Signs Temp Pulse Pulse Resp BP BP Pulse Ox 03/23/18 07:52 18 03/23/18 05:37 18 03/23/18 05:10 98.4 F 55 L 18 103/65 99 03/23/18 04:45 98.0 F 03/23/18 04:40 16 93/59 03/23/18 04:10 51 L 17 92/61 95 03/23/18 04:00 56 L 13 105/67 97 03/23/18 03:10 61 14 110/65 98 03/23/18 02:40 16 136/69 100 03/23/18 02:30 68 16 138/74 99 03/23/18 02:10 49 L 12 138/74 99 03/23/18 01:50 52 L 17 133/77 100 03/23/18 01:45 51 L 17 133/77 100 03/23/18 01:40 113/71 03/23/18 01:10 63 16 105/80 100 03/23/18 01:00 70 17 123/74 100 03/23/18 00:18 99 03/23/18 00:12 98.2 F 65 18 130/78 99 Intake and Output 03/22/18 03/23/18 03/23/18 22:59 06:59 14:59 Other: Voiding Method Toilet Weight 58.513 kg Results 03/23/18 00:24 03/23/18 00:24 Cardiac Enzymes 03/23/18 03/23/18 03/23/18 Range/Units 00:24 00:24 06:44 AST 25 (14-36) U/L CK-MB (CK-2) 1.7 1.0 (0.0-2.4) ng/mL Troponin I <0.012 <0.012 (0.000-0.034) ng/mL Coagulation 03/23/18 Range/Units 00:24 PT 9.6 (9.0-12.0) sec APTT 24.7 (22.0-30.0) sec CBC 03/23/18 Range/Units 00:24 WBC 3.6 L (3.8-10.6) k/uL RBC 4.22 (3.80-5.40) m/uL Hgb 13.2 (11.4-16.0) gm/dL Hct 40.6 (34.0-46.0) % Plt Count 212 (150-450) k/uL Comprehensive Metabolic Panel 03/23/18 Range/Units 00:24 Sodium 141 (137-145) mmol/L Potassium 3.9 (3.5-5.1) mmol/L Chloride 110 H (98-107) mmol/L Carbon Dioxide 27 (22-30) mmol/L BUN 26 H (7-17) mg/dL Creatinine 0.66 (0.52-1.04) mg/dL Glucose 95 (74-99) mg/dL Calcium 9.4 (8.4-10.2) mg/dL AST 25 (14-36) U/L ALT 30 (9-52) U/L Alkaline Phosphatase 82 (38-126) U/L Total Protein 6.8 (6.3-8.2) g/dL Albumin 3.9 (3.5-5.0) g/dL Current Medications Generic Name Dose Route Start Last Admin Trade Name Freq PRN Reason Stop Dose Admin Aspirin 325 mg 03/24/18 09:00 Aspirin PO DAILY [facility] Heparin Sodium (Porcine) 0 unit 03/23/18 03:08 Heparin IV PER PROTOCOL PRN Low PTT Protocol Heparin Sodium/Sodium Chloride 250 mls @ 7.02 mls/hr 03/23/18 03:15 03/23/18 03:38 25,000 unit/ Sodium Chloride IV 12 units/kg/hr .Q24H MELINA 7.02 mls/hr Administration Protocol 12 UNITS/KG/HR Nitroglycerin 0.5 inch 03/23/18 06:00 03/23/18 04:58 Nitro-Bid Oint TOPICAL Not Given Q6HR [facility] Ondansetron HCl 4 mg 03/23/18 05:43 Zofran IVP Q6HR PRN Nausea And Vomiting Intake and Output 03/22/18 03/23/18 03/23/18 22:59 06:59 14:59 Other: Voiding Method Toilet Weight 58.513 kg 03/23/18 00:24 03/23/18 00:24
--- NOTE | 2018-03-23 10:05 | ECHOF ---
Referral Reason:cp MEASUREMENTS -------- HEIGHT: 157.5 cm WEIGHT: 58.5 kg BP: RVIDd: 2.9 cm (< 3.3) IVSd: 0.8 cm (0.6 - 1.1) LVIDd: 4.1 cm (3.9 - 5.3) LVPWd: 1.0 cm (0.6 - 1.1) IVSs: 1.1 cm LVIDs: 2.9 cm LVPWs: 1.2 cm LA Diam: 2.7 cm (2.7 - 3.8) LAESV Index (A-L): 30.89 ml/m Ao Diam: 2.5 cm (2.0 - 3.7) AV Cusp: 1.9 cm (1.5 - 2.6) LA Diam: 3.4 cm (2.7 - 3.8) MV EXCURSION: 20.477 mm (> 18.000) MV EF SLOPE: 138 mm/s (70 - 150) EPSS: 0.2 cm MV E Steven: 0.56 m/s MV DecT: 173 ms MV A Steven: 0.77 m/s MV E/A Ratio: 0.73 RAP: 5.00 mmHg RVSP: 17.74 mmHg FINDINGS -------- Sinus rhythm. This was a technically good study. LV size, wall thickness and systolic function are normal, with an EF greater than 55%. The left guillermo tricular size is normal. The right ventricle is normal in size. The left atrial size is normal. The right atrial size is normal. The aortic valve is trileaflet, and appears structurally normal. No aortic stenosis or regurgitation. Mild mitral annular calcification present. Mild mitral regurgitation is present. Mild tricuspid regurgitation present. There is no evidence of pulmonary hypertension. The right v entricular systolic pressure, as measured by Doppler, is 17.74mmHg. There is no pulmonic regurgitation present. The aortic root size is normal. There is no pericardial effusion. CONCLUSIONS -------- 1. LV size, wall thickness and systolic function are normal, with an EF greater than 55%. 2. The left ventricular size is normal. 3. The right ventricle is normal in size. 4. The left atrial size is normal. 5. The right atrial size is normal. 6. The aortic valve is trileaflet, and appears structurally normal. No aortic stenosis or regurgitati on. 7. Mild mitral annular calcification present. 8. Mild mitral regurgitation is present. 9. Mild tricuspid regurgitation present. 10. There is no evidence of pulmonary hypertension. 11. The right ventricular systolic pressure, as measured by Doppler, is 17.74mmHg. 12. There is no pulmonic regurgitation present. 13. The aortic root size is normal. 14. There is no pericardial effusion. MEDICAL INFORMATION OFFICER: Carlee Montoya RDCS
[2018-03-23 12:29] VITALS: BP 106/64; PULSE 46; TEMP 97.4
--- NOTE | 2018-03-23 12:43 | ECHOS ---
STRESS ECHOCARDIOGRAM INDICATIONS: Chest pain. MEDICATIONS: None. BASELINE HEART RATE: 56 BASELINE BLOOD PRESSURE: 99/61 MAXIMUM HEART RATE: 154 MAXIMUM BLOOD PRESSURE: 169/84 85% MPHR: 140 100% MPHR: 165 METS: 10.9 MAXIMUM STAGE REACHED: III TOTAL EXERCISE TIME: 9::45 CLINICAL INFORMATION: Baseline EKG shows sinus rhythm, normal axis, normal intervals. Patient exercised on Marquez protocol for a total of 9 minutes and 45 seconds achieving 11 METS, 93% of predicted maximal heart rate without chest pain or diagnostic ST-segment depression. At peak exercise, there was [address]-segment depression noted. Baseline echo shows normal left ventricular size and wall motion systolic function. Postexercise, there is normal hyperdynamic response of all segments of myocardium noted. CONCLUSION: 1. Good exercise tolerance. 2. Negative stress test by EKG criteria. 3. Negative stress echo. MMARLENE / BENNETTN: [id number] /
[2018-03-24] MEDS ORDERED: ASPIRIN 325 MG TAB PO SCH (09:00)
--- NOTE | 2018-04-03 13:37 | P.HPIM ---
History of Present Illness H&P Date: 03/23/18 Chief Complaint: Chest pain. HISTORY AND PHYSICAL AND DISCHARGE SUMMARY: This is a 57-year-old female one of Dr. Arrington with a previous medical history significant for asthma, fibromyalgia, TIA, was brought into the emergency department at [facility] because of worsening chest pain that woke her up from sleep radiating to the neck in the left arm associated with left arm numbness, patient stated that she has been having chest pain on and off all day yesterday and she thought her chest pain would go away, she went to bed and she was awakened by her chest pain she called her who brought her to the ER at [facility] EKG did not show any evidence of acute changes, patient blood pressure was initially low she did receive morphine made her chest pain worse then the blood pressure improved after she was given some bolus of IV fluid that she was given nitroglycerin that made her chest pain goes away, apparently the patient did have a stress test about a year ago that was negative for stress-induced ischemia however because of the presentation the ER physician felt that the patient need to be admitted and she was started on heparin drip for now pending evaluation by cardiology. Stress testing was negative and patient will be discharged home in stable condition. Review of Systems Constitutional: Reports chronic pain, Denies anorexia, Denies chronic headaches , Denies weakness, Denies weight gain Eyes: denies blurred vision, denies bulging eye Ears: deny: decreased hearing Ears, nose, mouth and throat: Denies dysphagia, Denies neck lump, Denies sore throat Cardiovascular: Reports chest pain, Reports decreased exercise tolerance, Reports dyspnea on exertion, Reports shortness of breath, Denies leg edema, Denies lightheadedness, Denies rapid heart beat, Denies syncope Respiratory: Denies congestion, Denies cough, Denies cough with sputum, Denies home oxygen, Denies sleep apnea, Denies snoring, Denies wheezing Gastrointestinal: Denies abdominal pain, Denies bloating, Denies diarrhea, Denies dyspepsia, Denies heartburn, Denies melena, Denies nausea, Denies vomiting Genitourinary: Denies dysuria, Denies nocturia Musculoskeletal: Denies myalgias Musculoskeletal: absent: ankle pain, ankle stiffness, ankle swelling, elbow pain , elbow stiffness, elbow swelling, foot pain, foot stiffness, foot swelling, hand pain, hand stiffness, hand swelling, hip pain, hip stiffness, hip swelling , knee pain, knee stiffness, knee swelling, shoulder pain, shoulder stiffness, shoulder swelling, wrist pain, wrist stiffness, wrist swelling Integumentary: Denies pruritus, Denies rash Neurological: Reports numbness, Denies weakness Psychiatric: Reports anxiety Endocrine: Denies fatigue, Denies weight change Past Medical History Past Medical History: Asthma, CVA/TIA, Fibromyalgia Additional Past Medical History / Comment(s): FIBROMYALGIA,ARTHRITIS,SCOLISOSIS History of Any Multi-Drug Resistant Organisms: None Reported Past Surgical History: Hysterectomy, Orthopedic Surgery Additional Past Surgical History / Comment(s): cervicaL FUSION,D&C, LT BREAST BX -NEG, metal clips in left breast Past Anesthesia/Blood Transfusion Reactions: No Reported Reaction Additional Past Anesthesia/Blood Transfusion Reaction / Comment(s): CLAUSTERPHOBIA Past Psychological History: No Psychological Hx Reported Smoking Status: Never smoker Past Alcohol Use History: None Reported Additional Past Alcohol Use History / Comment(s): Patient is a life-long nonsmoker. No marijuana or illicit drug use. No alcohol use. 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 Past Drug Use History: None Reported - Past Family History Father Family Medical History: Cancer Additional Family Medical History / Comment(s): Father in his 70s from CAD and had cancer. Patient does not know type of cancer. Mother Family Medical History: Cancer Additional Family Medical History / Comment(s): Mother in her 60s from stomach cancer with history of CVA. Brother(s) Additional Family Medical History / Comment(s): Patient has 2 brothers. One brother has history of CV disease and one has no major medical problems. Sister(s) Additional Family Medical History / Comment(s): Patient has 4 sisters. One from leukemia. One has hyperlipidemia. 2 have no major medical problems. Daughter(s) Additional Family Medical History / Comment(s): Patient has 3 daughters and 1 son with no major medical problems. Medications and Allergies Home Medications Medication Instructions Recorded Confirmed Type No Known Home Medications 03/23/18 03/23/18 History Allergies Allergy/AdvReac Type Severity Reaction Status Date / Time codeine Allergy Anaphylaxis Verified 02/08/19 07:47 Penicillins Allergy Unknown Verified 03/23/18 07:47 Childhood Sulfa (Sulfonamide Allergy Dyspnea Verified 03/23/18 07:47 Antibiotics) tetracycline Allergy Unknown Verified 03/23/18 07:47 Childhood Physical Exam Vitals: Vital Signs Temp Pulse Pulse Resp BP BP Pulse Ox 03/23/18 05:37 18 03/23/18 05:10 98.4 F 55 L 18 103/65 99 03/23/18 04:45 98.0 F 03/23/18 04:40 16 93/59 03/23/18 04:10 51 L 17 92/61 95 03/23/18 04:00 56 L 13 105/67 97 03/23/18 03:10 61 14 110/65 98 03/23/18 02:40 16 136/69 100 03/23/18 02:30 68 16 138/74 99 03/23/18 02:10 49 L 12 138/74 99 03/23/18 01:50 52 L 17 133/77 100 03/23/18 01:45 51 L 17 133/77 100 03/23/18 01:40 113/71 03/23/18 01:10 63 16 105/80 100 03/23/18 01:00 70 17 123/74 100 03/23/18 00:18 99 03/23/18 00:12 98.2 F 65 18 130/78 99 Intake and Output 03/22/18 03/22/18 03/23/18 14:59 22:59 06:59 Other: Weight 58.513 kg - Constitutional General appearance: no acute distress, thin - EENT Eyes: anicteric sclerae, EOMI, PERRLA, no ptosis, no scleral icterus, normal appearance ENT: hearing grossly normal, NA/AT, normal oropharynx, no thrush Ears: bilateral: normal - Neck Neck: no lymphadenopathy, normal ROM, no rigidity, no stridor, no thyromegaly Carotids: bilateral: upstroke normal Thyroid: bilateral: normal size - Respiratory Respiratory: bilateral: diminished, negative: dullness, rales, rhonchi, wheezing , prolonged expiration, prolonged inspiration - Cardiovascular Rhythm: regular Heart sounds: normal: S1, S2 Abnormal Heart Sounds: no systolic murmur, no S3 Gallop, no S4 Gallop - Gastrointestinal General gastrointestinal: normal bowel sounds, soft, no splenomegaly, no tenderness, no umbilical hernia, no ventral hernia - Integumentary Integumentary: normal, normal turgor - Musculoskeletal Musculoskeletal: gait normal, strength equal bilaterally - Psychiatric Psychiatric: A&O x's 3, appropriate affect, intact judgment & insight Results CBC & Chem 7: 03/23/18 00:24 03/23/18 00:24 Labs: Abnormal Lab Results - Last 24 Hours (Table) 03/23/18 03/23/18 03/23/18 Range/Units 00:24 00:24 00:24 WBC 3.6 L (3.8-10.6) k/uL Chloride 110 H (98-107) mmol/L BUN 26 H (7-17) mg/dL Total Creatine Kinase 183 H (30-135) U/L Thrombosis Risk Factor Assmnt - DVT/VTE Prophylaxis DVT/VTE Prophylaxis: Pharmacologic Prophylaxis ordered, Mechanical Prophylaxis ordered - Choose All That Apply Each Factor Represents 1 point: Age 41-60 years Thrombosis Risk Factor Assessment Total Risk Factor Score: 1 Thrombosis Risk Factor Assessment Level: Low Risk Assessment and Plan Assessment: Assessment and plan: 1. Chest pain at rest likely noncardiac. Patient was started on heparin drip until obtaining cardiac enzymes, continue aspirin 325 mg once every day, nitroglycerin as needed, cardiology evaluation, patient may need to go for Lexiscan stress test for further evaluation. 2. History of fibromyalgia. Stable at this time. 3. History of TIA. Continue aspirin 325 mg orally once every day. 4. History of asthma. Stable at this time. 5. GERD. Start PPI. 6. Observation. 7. Full code.
== END 2018-03-23 13:25 | disposition home or self-care (01) ==
LOC: EC 00:10 → 1SOBS 04:26
PROVIDERS: ADMIT Internal Medicine; ATTEND Internal Medicine
DX: R07.2 Precordial pain (principal); R10.13 Epigastric pain; R51 Headache; M79.603 Pain in arm, unspecified; R11.0 Nausea; R06.02 Shortness of breath; R06.00 Dyspnea, unspecified; R20.0 Anesthesia of skin; I95.9 Hypotension, unspecified; M79.7 Fibromyalgia; K21.9 Gastro-esophageal reflux disease without esophagitis; J45.909 Unspecified asthma, uncomplicated; G89.29 Other chronic pain; Z88.5 Allergy status to narcotic agent; Z88.0 Allergy status to penicillin; Z88.2 Allergy status to sulfonamides; Z88.1 Allergy status to other antibiotic agents; Z86.73 Personal history of transient ischemic attack (TIA), and cerebral infarction without residual deficits; Z98.1 Arthrodesis status; Z80.0 Family history of malignant neoplasm of digestive organs; Z82.49 Family history of ischemic heart disease and other diseases of the circulatory system; Z80.6 Family history of leukemia
CPT/HCPCS: 96375 ×2; 96376; 96365; 99285; 36415; 93005; 93306; 93351; 85379; 83880; 80053; 82150; 82550; 82553; 83690; 83735; 84484; 85025; 85610; 85730; 71046; G0378; J2270; J1644 ×2; J2405; J1885

== ENCOUNTER → 2018-04-03 | Outpatient (CLI) | payer BC ==
--- NOTE | 2018-04-03 07:37 | US ---
EXAMINATION TYPE: US abdomen complete DATE OF EXAM: 04/03/2018 COMPARISON: CT Chest CLINICAL HISTORY: R10.9 ABD PAIN. Chest pain, GB removed EXAM MEASUREMENTS: Liver Length: 12.7 cm CBD: 0.6 cm Spleen: 7.1 cm Right Kidney: 11.8 x 3.9 x 5.1 cm Left Kidney: 10.4 x 5.2 x 4.4 cm Pancreas: wnl, head and tail obscured by overlying bowel gas Liver: Multiple cysts scattered throughout, largest in left lobe= 3.5 x 1.8 x 3.6 cm/ largest in rig ht lobe= 1.5 x 1.2 x 1.2 cm Gallbladder: Surgically absent Evidence for sonographic Hodge's sign: No CBD: wnl Spleen: wnl Right Kidney: wnl Left Kidney: wnl Upper IVC: wnl Abd Aorta: wnl The intrahepatic portion of the IVC and proximal abdominal aorta are within normal limits. Common bi le duct is unremarkable. The visualized portions of the pancreas are homogenous. The spleen is unre markable. Kidneys are symmetric and free of hydronephrosis. No renal lesions are seen. IMPRESSION: Hepatic cyst and surgical absence of the gallbladder, otherwise unremarkable abdominal ul trasound.
== END | disposition home or self-care (01) ==
LOC: RADUSWWP 07:03
PROVIDERS: ATTEND Family Medicine
DX: K76.89 Other specified diseases of liver (principal); Z90.49 Acquired absence of other specified parts of digestive tract
CPT/HCPCS: 76700

== ENCOUNTER 2018-04-10 06:18 | Day surgery (SDC) | payer BC ==
[2018-04-09 08:27] VITALS: BMI 25.6
[~2018-04-10 06:18] MED LIST: ALPRAZolam 0.25 MG TAB PO PRN; ALPRAZolam 0.5 MG TAB PO PRN; ASPIRIN 325 MG TAB PO STA; ATORVASTATIN 80 MG TAB PO STA; NITROGLYCERIN SL TABS 0.4 MG TAB SUBLINGUAL PRN; SODIUM CHLORIDE 0.9% 1,000 ML in EMPTY BAG 1 BAG IV ONE
[2018-04-10 07:12] VITALS: RESP 16; TEMP 98.1
[2018-04-10] MEDS ORDERED: SODIUM CHLORIDE 0.9% 1,000 ML IV ONE (07:12)
[2018-04-10] MEDS ORDERED: VERAPAMIL 2.5 MG/ML 2 ML AMP ONE (07:25)
[2018-04-10] MEDS ORDERED: HEPARIN SODIUM 1,000 UN/ML (10ML VL) ONE (07:25)
[2018-04-10] MEDS ORDERED: LIDOCAINE 1% INJ 10MG/ML (20 ML MDV) ONE (07:25)
[2018-04-10] MEDS ORDERED: MIDAZOLAM 2 MG/2 ML VIAL IV ONE (07:49)
[2018-04-10] MEDS: LIDOCAINE 1% INJ 10MG/ML (20 ML MDV) SQ ONE ×2 (07:53→08:02)
[2018-04-10] MEDS ORDERED: fentaNYL (PF) 50 MCG/ML 2 ML AMP ONE (07:56)
[2018-04-10] MEDS ORDERED: LIDOCAINE 1% 20 ML VIAL (10MG/ML) FOR IV START SQ ONE (07:59)
[2018-04-10] MEDS ORDERED: fentaNYL (PF) 50 MCG/ML 2 ML AMP IV ONE (08:02)
[2018-04-10] MEDS ORDERED: IOPAMIDOL-370 150ML BTL INJ ONE (08:08)
[2018-04-10] MEDS ORDERED: RX INFO: IV CONTRAST WAS GIVEN 1 EACH MISC MISCELLANE PRN (08:12)
[2018-04-10] MEDS ORDERED: SODIUM CHLORIDE 0.9% 1,000 ML IV SCH (08:15)
--- NOTE | 2018-04-10 09:32 | LTR ---
April 10, 2018 Re: Kathia Hernandez Dear Dr. Arrington: Ms. Kathia Hernandez underwent a heart catheterization today and that revealed normal coronaries. I want to thank you for allowing me to participate in her care and please do not hesitate to call if you have any question or concern. Sincerely, MD SEAN Shook / STEFAN: [phone] /
--- NOTE | 2018-04-10 09:32 | CC ---
CARDIAC CATHETERIZATION REPORT DATE OF SERVICE: April 10, 2018. PERFORMING PHYSICIAN: Jan Arambula MD, ward maid. PROCEDURE PERFORMED: 1. Selective right and left coronary angiogram. 2. Left heart catheterization. INDICATION: This is a pleasant 57-year-old female patient who continues to have intermittent episodes of chest discomfort concerning for angina. She underwent a stress test and that came in to be unremarkable, but because the patient continues to have chest discomfort, a heart catheterization was advised. APPROACH: Right common femoral artery. COMPLICATION: None. LEVEL OF SEDATION: Moderate with a sedation length of 20 minutes. PROCEDURE DESCRIPTION: After obtaining an informed consent, the patient was brought to the cardiac cardiac cath lab technologist. Initially I attempted cannulating the right radial artery, but I was unable and because of that, I decided to go from the groin. The right common femoral artery was cannulated using micropuncture technique, the micropuncture wire passed easily then I placed a 6-Syrian sheath in the right common femoral artery. After that, I did selective right and left coronary angiogram using JL3.5 and JR3.5 catheters. Left heart catheterization was performed using the JR3.5, which flipped into the LV then I did pullback across the aortic valve. The procedure was completed without any complication. SELECTIVE CORONARY ANGIOGRAM: 1. The right coronary artery is a large caliber vessel and is a dominant vessel. It is angiographically normal. Distally, it bifurcates into PDA and PLV branches, both appear to be angiographically normal. 2. The left main is angiographically normal. It bifurcates into the left circumflex and left anterior descending artery. 3. The left circumflex is a large caliber vessel. It is a nondominant vessel. The proximal left circumflex appeared to be normal. It gives rise into a large OM branch, which appeared to be angiographically normal. The mid circumflex is normal and gives rise in the second OM branch which appeared to be normal and the circumflex distally appeared to be normal. 4. The LAD: The proximal LAD appeared to be normal. The mid LAD is normal and gives rise into a large diagonal branch which appeared to be normal. The LAD after that appeared to be angiographically normal. HEMODYNAMICS: The left ventricular end-diastolic pressure was 8 mmHg and no gradient was identified across the aortic valve. CONCLUSION: 1. Normal coronary angiogram. 2. Normal left ventricular end-diastolic pressure. POSTPROCEDURE MANAGEMENT: Medical treatment and follow up with the patient. SEAN / STEFAN: [id number] /
[2018-04-10] MEDS ORDERED: ACETAMINOPHEN TAB 325 MG TAB ONE (09:49)
[2018-04-10] MEDS ORDERED: ACETAMINOPHEN TAB 325 MG TAB PO PRN (10:25)
[2018-04-10 16:17] VITALS: BP 109/70; PULSE 70
== END 2018-04-10 13:45 | disposition home or self-care (01) ==
LOC: CATHCVL 06:18
PROVIDERS: ATTEND Internal Medicine Interventional Cardiology
DX: I20.0 Unstable angina (principal); M79.7 Fibromyalgia; J45.909 Unspecified asthma, uncomplicated; M19.90 Unspecified osteoarthritis, unspecified site; M41.9 Scoliosis, unspecified; Z88.1 Allergy status to other antibiotic agents; Z88.5 Allergy status to narcotic agent; Z88.0 Allergy status to penicillin; Z88.2 Allergy status to sulfonamides; Z86.73 Personal history of transient ischemic attack (TIA), and cerebral infarction without residual deficits; Z98.1 Arthrodesis status; Z90.710 Acquired absence of both cervix and uterus
CPT/HCPCS: 93458; C1760; C1894 ×2; C1769 ×2; J2250; J2001; J3010; Q9967

== ENCOUNTER 2018-04-20 11:38 | Day surgery (SDC) | payer BC ==
[2018-04-19 13:22] VITALS: BMI 25.2
[~2018-04-20 11:38] MED LIST changes: -ALPRAZolam 0.25 MG TAB PO PRN; -ALPRAZolam 0.5 MG TAB PO PRN; -ASPIRIN 325 MG TAB PO STA; -ATORVASTATIN 80 MG TAB PO STA; +LACTATED RINGERS 1,000 ML IV SCH; -NITROGLYCERIN SL TABS 0.4 MG TAB SUBLINGUAL PRN; -SODIUM CHLORIDE 0.9% 1,000 ML in EMPTY BAG 1 BAG IV ONE
[2018-04-20 12:47] VITALS: RESP 16; TEMP 98.2
[2018-04-20] MEDS ORDERED: LIDOCAINE 1% 20 ML VIAL (10MG/ML) FOR IV START INTRADERMA ONE (12:56)
[2018-04-20] MEDS ORDERED: PROPOFOL 10 MG/ML 20 ML VIAL IV ONE (13:39)
--- NOTE | 2018-04-20 13:49 | P.PCN ---
Date of Procedure: 04/20/18 Procedure(s) Performed: BRIEF HISTORY: Patient is a 57-year-old, pleasant,, scheduled for an upper endoscopy as part of value should of atypical chest pain or melena for the last 1 year duration. About a month ago she had severe episode of chest pain into the emergency room and had cardiac workup including a cardiac at that was negative. She was subsequent started on omeprazole 20 mg daily and symptoms and has been doing much better. She still had 2 episodes of chest pain in the last 1 month which are relieved with some intermittent dysphagia.. PROCEDURE PERFORMED: Esophagogastroduodenoscopy with biopsy. PREOPERATIVE DIAGNOSIS: Atypical chest pain. IV sedation per anesthesia. PROCEDURE: After informed consent was obtained, the patient was brought into the endoscopy unit. IV sedation was administered by Anesthesia under continuous monitoring. Initially the Olympus GIF-140 video endoscope was inserted into the mouth. Esophagus intubated without any difficulty. It was gradually advanced into the stomach and duodenum and carefully examined. The bulb and the second part of the duodenum appeared normal. The scope at this time was withdrawn to the stomach, adequately insufflated with air, and upon careful examination, mucosa of the antrum had patchy areas of the prepyloric area this was biopsied. The body, cardia and the fundus appeared normal. The scope was then withdrawn into the esophagus. The GE junction was located at 36 cm from the incisors. The esophagus appeared normal. There were no erosions or ulcerations seen. Biopsies were done from the distal esophagus and the patient tolerated the procedure well. IMPRESSION: 1. Mild antral gastritis. 2. Normal-appearing esophagus with no evidence of esophagitis. RECOMMENDATIONS: The findings of this examination were discussed with the patient as well as a family. She was advised to follow with the biopsy results. She will continue with omeprazole 20 mg daily for 6 more weeks and continue to follow antireflux measures. If she still remains symptomatic she was advised to follow up in office in 6 weeks.
[2018-04-20 14:06] VITALS: BP 105/58; PULSE 59
== END 2018-04-20 14:33 | disposition home or self-care (01) ==
LOC: ORWHC2ENDO 11:38
PROVIDERS: ATTEND Internal Medicine Gastroenterology
DX: K29.60 Other gastritis without bleeding (principal); B96.81 Helicobacter pylori [H. pylori] as the cause of diseases classified elsewhere; K21.9 Gastro-esophageal reflux disease without esophagitis; Z88.5 Allergy status to narcotic agent; Z88.0 Allergy status to penicillin; Z88.2 Allergy status to sulfonamides; Z79.899 Other long term (current) drug therapy; Z88.1 Allergy status to other antibiotic agents
CPT/HCPCS: 43239; J2704; 88305; 88342

== ENCOUNTER → 2018-05-07 | Outpatient (CLI) | payer BC ==
--- NOTE | 2018-05-10 10:11 | MM ---
Reason for exam: screening (asymptomatic). Last mammogram was performed 4 years ago. History: Benign excisional biopsy of the right breast. Physical Findings: A clinical breast exam by your physician is recommended on an annual basis and results should be correlated with mammographic findings. MG Screening Mammo w CAD Bilateral CC and MLO view(s) were taken. Prior study comparison: April 24, 2014, mammogram, performed at [facility]. The breast tissue is heterogeneously dense. This may lower the sensitivity of mammography. Stable benign calcifications. There is chronic nodularity bilaterally. No significant changes when compared with prior studies. ASSESSMENT: Benign, BI-RAD 2 RECOMMENDATION: Routine screening mammogram of both breasts in 1 year.
== END | disposition home or self-care (01) ==
LOC: RADMAMWWP 07:02
PROVIDERS: ATTEND Family Medicine
DX: Z12.31 Encounter for screening mammogram for malignant neoplasm of breast (principal)
CPT/HCPCS: 77067

== ENCOUNTER → 2018-08-11 | Outpatient (CLI) | payer OTHER ==
--- NOTE | 2018-08-11 10:11 | MR ---
EXAMINATION TYPE: MR shoulder RT wo con DATE OF EXAM: 08/11/2018 9:54 AM COMPARISON: NONE HISTORY: Pain in RT shoulder after throwing heavy linen bag TECHNIQUE: Multiplanar, multisequence imaging of the right shoulder is performed without contrast. FINDINGS: There is no evidence of an os acromiale. There are mild inflammatory changes in the right A C joint. The acromion is downward sloping. There is pseudocystic change in the humeral head, an indirect sign of impingement. There is increased fluid in the subdeltoid and subacromial bursa. There is diffuse tendinosis of the supraspinatus and infraspinatus tendons. There is incomplete full- thickness tear of the anterior fibers of the supraspinatus tendon without evidence of muscular retrac tion. The popliteus muscle appears unremarkable. The cartilaginous glenoid labrum appears intact. The biceps tendon is normally situated within the biceps tendon groove. There is evidence of bicipita l tendinosis within the proximal intra-articular portion. I could not exclude a small intrasubstance tear in this region. IMPRESSION: 1. INCOMPLETE FULL-THICKNESS TEAR OF THE SUPRASPINATUS TENDINOUS ANTERIOR FIBERS. 2. DIFFUSE TENDINOSIS OF THE INFRASPINATUS AND SUPRASPINATUS TENDONS. 3. EVIDENCE OF INTRA-ARTICULAR BICIPITAL TENDINOSIS. I COULD NOT EXCLUDE A SMALL INTRASUBSTANCE TEAR. 4. MILD HYPERTROPHIC CHANGES, RIGHT AC JOINT. 5. SMALL JOINT EFFUSION WITH ABNORMAL FLUID IN BOTH THE SUBDELTOID AND SUBACROMIAL BURSA.
== END | disposition home or self-care (01) ==
LOC: RADMRIMAIN 08:51
PROVIDERS: ATTEND Emergency Medicine
DX: M75.111 Incomplete rotator cuff tear or rupture of right shoulder, not specified as traumatic (principal); M67.813 Other specified disorders of tendon, right shoulder; M89.311 Hypertrophy of bone, right shoulder

== ENCOUNTER 2018-11-22 11:03 | Emergency (ER) | payer BC ==
[2018-11-22] MEDS ORDERED: HYDROmorphone 0.5 MG/0.5 ML SYRINGE IVP STA (11:34)
[2018-11-22] MEDS ORDERED: SODIUM CHLORIDE 0.9% 1,000 ML IV STA (11:34)
[2018-11-22] MEDS ORDERED: ONDANSETRON 4 MG/2 ML VIAL IVP STA (11:34)
--- NOTE | 2018-11-22 11:39 | ED ---
Abdominal Pain HPI - General Chief Complaint: Abdominal Pain Stated Complaint: Appendix Time Seen by Provider: 11/22/18 11:18 Source: patient Mode of arrival: ambulatory Limitations: no limitations - History of Present Illness Initial Comments: Patient is a 58-year-old female presenting to the emergency department with a chief complaint of right lower quadrant abdominal pain. Patient reports her symptoms began 4 days ago and has slowly increased in severity. Patient reports she also developed nausea over the past 2 days but no vomiting or diarrhea. Patient reports the pain alternates between dull and sharp. Patient reports the pain is not related to by mouth intake. Patient does report chills but never obtain her temperature. Patient denies any back pain or chest pain. Patient reports taking Tylenol with minimal improvement. Patient reports hip flexion does exacerbate the pain. Patient reports resting is not alleviating factors. Patient does report a history of constipation which she takes a stool softener and a laxative daily. Patient is drinking and eating solids without issues. Patient did have a small bowel movement today and yesterday. Patient had cholecystectomy. - Related Data Home Medications Medication Instructions Recorded Confirmed traZODone HCL 150 mg PO HS 04/19/18 11/22/18 Acetaminophen [Tylenol] 325 mg PO TID PRN 11/22/18 11/22/18 DULoxetine HCL [Cymbalta] 60 mg PO HS 11/22/18 11/22/18 Allergies Allergy/AdvReac Type Severity Reaction Status Date / Time codeine Allergy Anaphylaxis Verified 11/22/18 11:36 Penicillins Allergy Unknown Verified 11/22/18 11:36 Childhood tetracycline Allergy Unknown Verified 11/22/18 11:36 Childhood acetaminophen [From [facility]] AdvReac Nausea & Verified 11/22/18 11:36 Vomiting hydrocodone [From [facility]] AdvReac Nausea & Verified 11/22/18 11:36 Vomiting Sulfa (Sulfonamide AdvReac Dyspnea Verified 11/22/18 11:36 Antibiotics) medication for fibromyalgia AdvReac stroke Uncoded 11/22/18 11:36 Review of Systems ROS Statement: Those systems with pertinent positive or pertinent negative responses have been documented in the HPI. ROS Other: All systems not noted in ROS Statement are negative. Past Medical History Past Medical History: Asthma, Chest Pain / Angina, CVA/TIA, Fibromyalgia, Rheumatoid Arthritis (RA) Additional Past Medical History / Comment(s): hx migraines, "induced seizure yrs ago", SCOLISOSIS, stroke from reaction from medication for fibromyalgia(does not know name), varicose veins, History of Any Multi-Drug Resistant Organisms: None Reported Past Surgical History: Breast Surgery, Cholecystectomy, Hysterectomy, Orthopedic Surgery Additional Past Surgical History / Comment(s): cervicaL fusion, D&C, LT BREAST Biopsy x 2, arthroscopy left knee Past Anesthesia/Blood Transfusion Reactions: Motion Sickness Additional Past Anesthesia/Blood Transfusion Reaction / Comment(s): CLAUSTROPHOBIA Past Psychological History: No Psychological Hx Reported Smoking Status: Never smoker - Past Family History Father Family Medical History: Cancer Additional Family Medical History / Comment(s): . Mother Family Medical History: Cancer Additional Family Medical History / Comment(s): . Brother(s) Additional Family Medical History / Comment(s): Patient has 2 brothers. One brother has history of CV disease and one has no major medical problems. Sister(s) Additional Family Medical History / Comment(s): Patient has 4 sisters. One from leukemia. One has hyperlipidemia. 2 have no major medical problems. Daughter(s) Additional Family Medical History / Comment(s): Patient has 3 daughters and 1 son with no major medical problems. General Exam Limitations: no limitations General appearance: alert, in no apparent distress Head exam: Present: atraumatic, normocephalic, normal inspection Eye exam: Present: normal appearance, PERRL, EOMI Pupils: Present: normal accommodation ENT exam: Present: normal exam, mucous membranes moist, normal external ear exam Neck exam: Present: normal inspection Respiratory exam: Present: normal lung sounds bilaterally Cardiovascular Exam: Present: regular rate, normal rhythm, normal heart sounds GI/Abdominal exam: Present: soft, tenderness (Right lower quadrant. Positive McBurney point tenderness. 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 Negative Rovsing. Negative Hodge.), normal bowel sounds. Absent: distended, guarding, rebound, mass Extremities exam: Present: normal inspection, normal capillary refill Back exam: Present: normal inspection, full ROM. Absent: tenderness, CVA tenderness (R), CVA tenderness (L) Neurological exam: Present: alert, oriented X3 Psychiatric exam: Present: normal affect, normal mood Skin exam: Present: warm, intact, normal color Course Vital Signs 11/22/18 11:12 Temperature 98.9 F Pulse Rate 98 Respiratory 18 Rate Blood Pressure 111/73 O2 Sat by Pulse 97 Oximetry Medical Decision Making - Medical Decision Making Patient is a 58-year-old female presenting to the emergency department with a chief complaint of right lower quadrant pain. Patient was sent to the ED from her primary care For possible appendicitis. Patient has also had nausea but no vomiting. Symptoms have been ongoing for the past 4 days with increased severity of pain in the right lower quadrant. Physical examination patient does have positive psoas and obturators sign but negative rebound tenderness or Rovsing. Patient does not have a gallbladder. Patient recently had shoulder surgery and has been on narcotic medication for pain control. Patient also has history of chronic constipation. CBC, CMP and UA are unremarkable. Patient does have mild leukopenia. CT of abdomen and pelvis is indicative of a moderate to large stool burden near the cecum which explains the right lower quadrant tenderness. Patient is eating and drinking without issues. Patient is also having bowel movements although there is small. No obstruction is noted. Patient will be given magnesium citrate. Patient was to follow with a GI specialist. Patient advised to eat diet rich in fiber.. Patient was to return to emergency department if symptoms worsen. Case discussed with physician. - Lab Data Result diagrams: 11/22/18 11:53 11/22/18 11:53 Lab Results 11/22/18 11/22/18 11/22/18 Range/Units 11:53 11:53 12:53 WBC 3.0 L (3.8-10.6) k/uL RBC 3.97 (3.80-5.40) m/uL Hgb 13.2 (11.4-16.0) gm/dL Hct 39.0 (34.0-46.0) % MCV 98.2 (80.0-100.0) fL MCH 33.1 (25.0-35.0) pg MCHC 33.8 (31.0-37.0) g/dL RDW 12.5 (11.5-15.5) % Plt Count 262 (150-450) k/uL Neutrophils % 56 % Lymphocytes % 35 % Monocytes % 5 % Eosinophils % 1 % Basophils % 0 % Neutrophils # 1.7 (1.3-7.7) k/uL Lymphocytes # 1.1 (1.0-4.8) k/uL Monocytes # 0.2 (0-1.0) k/uL Eosinophils # 0.0 (0-0.7) k/uL Basophils # 0.0 (0-0.2) k/uL Sodium 138 (137-145) mmol/L Potassium 4.2 (3.5-5.1) mmol/L Chloride 102 (98-107) mmol/L Carbon Dioxide 26 (22-30) mmol/L Anion Gap 10 mmol/L BUN 16 (7-17) mg/dL Creatinine 0.66 (0.52-1.04) mg/dL Est GFR (CKD-EPI)AfAm >90 (>60 ml/min/1.73 sqM) Est GFR (CKD-EPI)NonAf >90 (>60 ml/min/1.73 sqM) Glucose 87 (74-99) mg/dL Calcium 9.7 (8.4-10.2) mg/dL Total Bilirubin 0.6 (0.2-1.3) mg/dL AST 25 (14-36) U/L ALT 29 (9-52) U/L Alkaline Phosphatase 58 (38-126) U/L Total Protein 7.4 (6.3-8.2) g/dL Albumin 4.5 (3.5-5.0) g/dL Amylase 62 (30-110) U/L Lipase 47 (23-300) U/L Urine Color Light Yellow Urine Appearance Clear (Clear) Urine pH 6.0 (5.0-8.0) Ur Specific [place] 1.019 (1.001-1.035) Urine Protein Negative (Negative) Urine Glucose (UA) Negative (Negative) Urine Ketones Negative (Negative) Urine Blood Negative (Negative) Urine Nitrite Negative (Negative) Urine Bilirubin Negative (Negative) Urine Urobilinogen <2.0 (<2.0) mg/dL Ur Leukocyte Esterase Negative (Negative) Disposition Clinical Impression: Right lower quadrant pain Disposition: HOME SELF-CARE Condition: Stable Instructions (If sedation given, give patient instructions): Abdominal Pain (ED) Additional Instructions: Please eat a rich fiber diet. Please take prescribed medication as directed. Please follow up with a GI specialist. Please return to emergency department symptoms if worsen. Is patient prescribed a controlled substance at d/c from ED?: No Referrals: Violet Arrington MD [Primary Care Provider] - 1-2 days Ashanti Su MD [STAFF PHYSICIAN] - 1-2 days Time of Disposition: 13:48
[2018-11-22 12:09] LABS: Basophils % (A) 0 %; Eosinophils % (A) 1 %; HGB 13.2 gm/dL (11.4-16.0); Lymphocytes # (A) 1.1 k/uL (1.0-4.8); Lymphocytes % (A) 35 %; MCH 33.1 pg (25.0-35.0); MCHC 33.8 g/dL (31.0-37.0); MCV 98.2 fL (80.0-100.0); Mean Platelet Volume 5.4; Monocytes # (A) 0.2 k/uL (0-1.0); Monocytes % (A) 5 %; Neutrophils # (A) 1.7 k/uL (1.3-7.7); Neutrophils % (A) 56 %; Platelet Count 262 k/uL (150-450); RBC 3.97 m/uL (3.80-5.40); RDW 12.5 % (11.5-15.5)
[2018-11-22 12:16] LABS: ALT 29 U/L (9-52); AST 25 U/L (14-36); African American GFR (CKD) >90 (>60 ml/min/1.73 sqM); Albumin 4.5 g/dL (3.5-5.0); Alkaline Phosphatase 58 U/L (38-126); Amylase 62 U/L (30-110); Anion Gap 10 mmol/L; Blood Urea Nitrogen 16 mg/dL (7-17); Calcium 9.7 mg/dL (8.4-10.2); Carbon Dioxide 26 mmol/L (22-30); Chloride 102 mmol/L (98-107); Glucose 87 mg/dL (74-99); Potassium 4.2 mmol/L (3.5-5.1); Sodium 138 mmol/L (137-145); Total Bilirubin 0.6 mg/dL (0.2-1.3); Total Protein 7.4 g/dL (6.3-8.2)
--- NOTE | 2018-11-22 12:56 | CT ---
EXAMINATION TYPE: CT abdomen pelvis w con DATE OF EXAM: 11/22/2018 COMPARISON: NONE HISTORY: 58-year-old female with abdominal pain TECHNIQUE: Contiguous axial scanning of the abdomen and pelvis following administration of 100 ml Iso lexi 300 IV contrast. Delayed images through the kidneys and coronal/sagittal reconstructions perform ed. CT DLP: 797.3 mGycm Automated exposure control for dose reduction was used. FINDINGS: Heart normal size with trace pericardial effusion measuring 5 mm. Some nodular subpleural atelectasis posterior left base and mild patchy opacity, probable atelectasis inferior lingula. No pleural effus ion. Numerous hypodense lesions within the liver. Most are too small for accurate CT characterization but probably represent cysts. The largest is bilobed in segment 4 left liver lobe measuring 3.2 cm, kane tible with a cyst. Mild prominence to the bile duct but with normal distal tapering. Portal venous system is patent. Cholecystectomy clips. Adrenal glands, kidneys, spleen, and pancreas appear within normal limits. No dilated small bowel, free fluid, or free air. Portions of a normal appendix are identified. Moderate to large overall stool burden, large stool distending the cecum up to 7.5 cm wide. No kirby lonic inflammatory change. No mesenteric or retroperitoneal lymphadenopathy seen. Bladder urine distended. Uterus surgically absent. Multiple pelvic phleboliths. Both ovaries are visu alized. No abnormal fluid collection in the pelvis or pelvic lymphadenopathy. Bones: Bilateral L5 pars defects with grade 2 anterolisthesis at L5-S1 and associated degenerative di sc disease. IMPRESSION: 1. MODERATE TO LARGE STOOL BURDEN ESPECIALLY WITH A LARGE AMOUNT OF STOOL IN THE CECUM AND INSPISSATE D APPEARING SOLID STOOL MATERIAL WITHIN THE SIGMOID COLON AND RECTUM. CORRELATE FOR CONSTIPATION. 2. TRACE TO SMALL PERICARDIAL EFFUSION MEASURING 5 MM THICK. 3. BILATERAL L5 PARS DEFECTS WITH GRADE 2 ANTEROLISTHESIS AT L5-S1 AND ASSOCIATED DEGENERATIVE DISC D ISEASE.
[2018-11-22 13:10] LABS: Appearance,Urine Clear (Clear); Bilirubin,Urine Negative (Negative); Blood,Urine Negative (Negative); Color,Urine Light Yellow; Glucose,Urine (UA) Negative (Negative); Ketones,Urine Negative (Negative); Leukocyte Esterase,Urine Negative (Negative); Nitrite,Urine Negative (Negative); Protein,Urine Negative (Negative); Specific Gravity,Urine 1.019 (1.001-1.035); Urobilinogen,Urine <2.0 mg/dL (<2.0)
[2018-11-22] MEDS ORDERED: MAGNESIUM CITRATE 296 ML BOTTLE PO ONE (13:57)
[2018-11-22 14:03] VITALS: BP 140/81; PULSE 71; RESP 16; TEMP 98
== END 2018-11-22 13:57 | disposition home or self-care (01) ==
LOC: EC 11:03
DX: R10.31 Right lower quadrant pain (principal); D72.819 Decreased white blood cell count, unspecified; K59.00 Constipation, unspecified; R11.0 Nausea; R68.83 Chills (without fever); M79.7 Fibromyalgia; Z88.0 Allergy status to penicillin; Z88.1 Allergy status to other antibiotic agents; Z88.2 Allergy status to sulfonamides; Z88.5 Allergy status to narcotic agent; Z88.6 Allergy status to analgesic agent; Z88.8 Allergy status to other drugs, medicaments and biological substances; Z79.891 Long term (current) use of opiate analgesic; Z79.899 Other long term (current) drug therapy; Z90.49 Acquired absence of other specified parts of digestive tract; Z98.890 Other specified postprocedural states; Z80.6 Family history of leukemia
CPT/HCPCS: 36415; 80053; 82150; 83690; 85025; 81003; 74177; 99284; 96374; 96375; 96361; J2405; J1170; Q9967

== ENCOUNTER 2020-01-30 08:22 | Day surgery (SDC) | payer BC ==
[2020-01-28 12:14] VITALS: BMI 27.4
[2020-01-30 08:45] VITALS: TEMP 97.6
[2020-01-30] MEDS ORDERED: LIDOCAINE 1% (10MG/ML) FOR IV START INTRADERMA ONE (08:57)
[2020-01-30] MEDS ORDERED: fentaNYL (PF) 50 MCG/ML 2 ML AMP ONE (08:59)
[2020-01-30] MEDS ORDERED: MIDAZOLAM 2 MG/2 ML VIAL ONE (08:59)
[2020-01-30] MEDS ORDERED: IV FLUID CONTINUATION 1,000 ML IV ONE (09:16)
--- NOTE | 2020-01-30 09:16 | P.PCN ---
Date of Procedure: 01/30/20 Procedure(s) Performed: Preoperative diagnosis: Demyelinating disease Post operative diagnoses: Demyelinating disease Procedure= lumbar puncture Anesthesia = moderate sedation with Versed 2 mg and fentanyl 50 g, local infiltration with lidocaine 1% 3 mL Condition: stable Complication: none. Description of the procedure procedure risk and benefits discussed with the patient and family, consent signed. Patient and the procedure area placed in sitting position , moderate sedation done to decrease the patient and anxiety, vital signs was monitored throughout the procedure , back prepped with chlorhexidine 3 times been local infiltration of the skin and subcutaneous tissue with lidocaine 1% 2 mL for skin and subcu interstitial frustrations at L4 5 levels then 22-gauge Quincke-type needle advanced slowly at L4- 5 interlaminar space there was positive cerebrospinal fluid which was clear, no heme, no paresthesia ,total of 8 ML of clear cerebrospinal fluid collected in 4 different tubes 2 mL in each, then the needle removed and a Band-Aid applied and patient tolerated the procedure well without any complications.
[2020-01-30 09:34] VITALS: BP 118/73; PULSE 80; RESP 16
[2020-01-30 09:35] LABS: ALT 40 U/L (4-34); AST 39 U/L (14-36)
[2020-01-30 09:53] LABS: T4, Free (Free Thyroxine) 1.05 ng/dL (0.78-2.19)
[2020-01-30 10:54] LABS: Glucose,CSF 50 mg/dL (40-70); Total Protein,CSF 44 mg/dL (12-60)
[2020-01-30 11:39] LABS: Appearance,CSF Clear; CSF Tube Number 4; Nucleated Cells, CSF 0 u/L (0-5); Red Blood Cell,CSF 0 u/L (0-10)
[2020-01-30 16:12] LABS: Anti-Smith Ab Interp NEGATIVE (NEGATIVE); DNA Double-Stranded NEGATIVE (NEGATIVE)
[2020-01-30 19:57] LABS: Rheumatoid Factor, Qnt 5 IU/mL (0-15)
[2020-01-31 10:39] LABS: VDRL, Qualitative CSF Nonreactive (Nonreactive)
[2020-02-03 13:58] LABS: IgG/Albumin Index (CSF) 0.51 (0.00 - 0.77)
== END 2020-01-30 09:46 ==
LOC: ORPAIN 08:22
PROVIDERS: ATTEND Specialist
DX: G37.9 Demyelinating disease of central nervous system, unspecified (principal); R83.6 Abnormal cytological findings in cerebrospinal fluid; Z88.0 Allergy status to penicillin; Z88.5 Allergy status to narcotic agent; Z88.6 Allergy status to analgesic agent; Z90.710 Acquired absence of both cervix and uterus
CPT/HCPCS: 86592; 86235 ×3; 84439; 88108; 84157; 82945; 82040; 82042; 82784; 83916; 84443; 84450; 84460; 86431; 89050; 86618; 86780; 86038; 86225; 87801; 62270; J2250; J3010